=== PATIENT | female | born 1975 | race Hispanic/Latino ===

== ENCOUNTER 2023-08-18 16:23 | Emergency (ER) | payer OTHER ==
--- OUTSIDE RECORDS SUMMARY | 2023-08-18 16:32 | XMS REPORT | Continuity of Care Document ---
Author Name Unknown Address [address] [facility] [address] [place] [address] [facility] Address [address] [facility] [address] [place] [address] Care Team Providers Care Plaster Pattern Caster Name Role Phone BONY HENSON Primary Care Physician Unavailab BONY Pacheco Attending Clinician Unavailable JULIA DA SILVA Attending Clinician Unavailable Ebhimynor GRILL ASSOCIATEJulia Rico Attending Clinician [phone] Unknown, Attending Attending Clinician Unavailab le Doctor Unassigned, [place] Attending Clinician [facility], Ang - Db Attending Clinician Unavailable Bony Krueger Attending Clinician [phone] SOFIA DAY Attending Clinician Unavailab Sofia Orellana DO Attending Clinician [phone] NENITA FERRERA Attending Clinician Unavailable Pob, [facility] Main Attending Clinician UnavailJAZZY Santoro Attending Clinician Unavailable SHERRI LIPSCOMB Attending Clinician Unavailable JESSICA JAY Attending Clinician Unavailable Jessica Galloway Attending Clinician [phone] CALLIE FREEMAN Attending Clinician Unavailable HARRIS MATA Attending Clinician Unavailable Harris Mata MD Attending Clinician [phone] Callie Freeman MD Attending Clinician [phone] Christiane Vasquez MD Attending Clinician [phone] Kassidy Barrientos Attending Clinician [phone] KASSIDY MIRAMONTES Attending Clinician UnavailSherri Thompson PA-C Attending Clinician [phone] Negro Pitt MD Attending Clinician [phone] NEGRO PITT Attending Clinician Unavailable Ray Garay MD Attending Clinician + [phone] RAY GARAY Attending Clinician UnavailJaylen Perez DO Attending Clinician [phone] Nurse, [facility] Attending Clinician Un available Agapito ANDERSON, Michelle Chaudhary Attending Clinician [phone] Green Cathy PUCKETT Attending Clinician [phone] Provider, [facility] Attending Clinician Un available YOLANDA GUZMÁN RP Attending Clinician Unavailable Yolanda Guzmán MD, Rp Attending Clinician [phone] FARHEEN AVINA Attending Clinician Unavailable Helen MALLORY, Farheen Attending Clinician [phone] Gustavo Bean Attending Clinician [phone] [facility] Attending Clinician Unavailable BONY HENSON Admitting Clinician Unavailable SOFIA DAY Admitting Clinician Unavailab HARRIS Longoria Admitting Clinician Unavailable CALLIE FREEMAN Admitting Clinician Unavailable SHERRI LIPSCOMB Admitting Clinician Unavailable Payers Payer Name Policy Type Policy Number Effective Date Expirati on Date Source [employer]IG[employer] II [id number] 2021 00:00:00 [facility] [id number] 2019 00:00:00 [facility] [id number] 2017 00:00:00 Problems Condition Name Condition Details Condition Category Status Onset Date Resolution Date Last Treatment Date Treating Clinician Comments Source Colitis Colitis Disease Active 12-24 00:00: 00 [facility] Irritable bowel syndrome, unspecifie d type Irritable bowel syndrome, unspecifie d type Disease Active 12-24 00:00: 00 [facility] Chronic constipati on Chronic constipati on Disease Active 12-24 00:00: 00 [facility] MERCER (nonalcoho lic steatohepa titis) MERCER (nonalcoho lic steatohepa titis) Disease Active 06-19 00:00: 00 [facility] Migraine with aura and without status migrainosu s, not intractabl e Migraine with aura and without status migrainosu s, not intractabl e Disease Active 2018-05 00:00: 00 [facility] Discolorat ion of skin Discolorat ion of skin Disease Active 2018-05 00:00: 00 [facility] Prediabete s Prediabete s Disease Active 2018-05 00:00: 00 [facility] Acquired hypothyroi dism Acquired hypothyroi dism Disease Active 01-28 00:00: 00 [facility] Vaginal granulatio n tissue Vaginal granulatio n tissue Disease Active 2017-05 00:00: 00 [facility] S/P hysterecto my S/P hysterecto my Disease Active 2017-05 0 00:00: 00 [facility] Status post surgical removal of both fallopian tubes Status post surgical removal of both fallopian tubes Disease Active 2017-05 0 00:00: 00 [facility] Iron deficiency Iron deficiency Disease Active 2017-05 0-10 00:00: 00 [facility] Breast cyst, left Breast cyst, left Disease Active 3-23 00:00: 00 [facility] Mammogram abnormal Mammogram abnormal Disease Active 2-20 00:00: 00 [facility] Urinary incontinen ce, unspecifie d type Urinary incontinen ce, unspecifie d type Disease Active 2016-05 2-13 00:00: 00 [facility] Hyperchole sterolemia Hyperchole sterolemia Disease Active 2016-05 0-05 00:00: 00 [facility] Vitamin D deficiency Vitamin D deficiency Disease Active 2016-05 0-05 00:00: 00 [facility] Excessive or frequent menstruati on Excessive or frequent menstruati on Disease Active 2015-05 00:00: 00 [facility] Tobacco dependence Tobacco dependence Disease Active 2015-05 00:00: 00 [facility] Chronic blood loss anemia Chronic blood loss anemia Disease Active 2015-05 00:00: 00 [facility] 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 2015-05 00:00: 00 [facility] Uterine leiomyoma, unspecifie d location Uterine leiomyoma, unspecifie d location Disease Active 2015-05 00:00: 00 [facility] Abdominal pain Abdominal pain Disease Active 2015-05 00:00: 00 [facility] Microscopi c hematuria Microscopi c hematuria Disease Active [facility] Allergies, Adverse Reactions, Alerts Allergy Name Allergy Type Status Severity Reaction(s) Onset Date Inactive Date Treating Clinician Comments Source Strawber ry Propensi ty to adverse reaction s Active Hives 06-16 00:00: 00 [facility] STRAWBER RY DRUG INGREDI Active Hives 06-16 00:00: 00 [facility] Metronid azole Hcl Propensi ty to adverse reaction s Active Nausea and/or Vomiting 2017-05 00:00: 00 [facility] METRONID AZOLE HCL DRUG INGREDI Active N/V 2017-05 00:00: 00 [facility] Pantopra zole Propensi ty to adverse reaction s Active Rash 12-19 00:00: 00 [facility] PANTOPRA ZOLE DRUG INGREDI Active High Rash 12-19 00:00: 00 [facility] Clindamy macho Propensi ty to adverse reaction s Active Nausea and/or Vomiting 02-11 00:00: 00 Oral [facility] CLINDAMY MACHO DRUG INGREDI Active Med Diarrhea 02-11 00:00: 00 [facility] Ciproflo xacin Hcl Propensi ty to adverse reaction s Active Rash 12-18 00:00: 00 [facility] CIPROFLO XACIN HCL DRUG INGREDI Active High Rash 2015-0 7-29 00:00: 00 [facility] Social History Social Habit Start Date Stop Date Quantity Comments Source Gender [facility] History of tobacco use Cigarette Smoker [facility] Alcohol intake 2023-07-06 00:00:00 2023-07-06 00:00:00 0 /d [facility] History of Social function 2023-06-16 00:00:00 2023-06-16 00:00:00 [facility] Exposure to SARS-CoV-2 (event) 2022-10-15 00:00:00 2022-10-25 09:14:00 Not sure [facility] History SDOH Alcohol Std Drinks 2022-09-29 00:00:00 2022-09-29 00:00:00 1 [facility] History SDOH Alcohol Binge 2022-09-29 00:00:00 2022-09-29 00:00:00 1 [facility] History SDOH Social Connections Phone 2022-09-29 00:00:00 2022-09-29 00:00:00 5 [facility] History SDOH Social Connections Get Together 2022-09-29 00:00:00 2022-09-29 00:00:00 2 [facility] History SDOH Social Connections Shinto 2022-09-29 00:00:00 2022-09-29 00:00:00 3 [facility] History SDOH Social Connections Membership 2022-09-29 00:00:00 2022-09-29 00:00:00 2 [facility] History SDOH Social Connections Meetings 2022-09-29 00:00:00 2022-09-29 00:00:00 1 [facility] History SDOH Social Connections Living 2022-09-29 00:00:00 2022-09-29 00:00:00 3 [facility] History SDOH Physical Activity DPW 2022-09-29 00:00:00 2022-09-29 00:00:00 3 [facility] History SDOH Physical Activity MPS 2022-09-29 00:00:00 2022-09-29 00:00:00 3 [facility] History SDOH Stress 2022-09-29 00:00:00 2022-09-29 00:00:00 3 [facility] History SDOH Financial 2022-09-29 00:00:00 2022-09-29 00:00:00 5 [facility] History SDOH Food Worry 2022-09-29 00:00:00 2022-09-29 00:00:00 1 [facility] History SDOH Food Scarcity 2022-09-29 00:00:00 2022-09-29 00:00:00 1 [facility] History SDOH Transport Med 2022-09-29 00:00:00 2022-09-29 00:00:00 2 [facility] History SDOH Transport Non-Med 2022-09-29 00:00:00 2022-09-29 00:00:00 2 [facility] History SDOH Housing Unable to Pay 2022-09-29 00:00:00 2022-09-29 00:00:00 2 [facility] History SDOH Housing Places Lived 2022-09-29 00:00:00 2022-09-29 00:00:00 1 [facility] History SDOH Housing Homeless Last Year 2022-09-29 00:00:00 2022-09-29 00:00:00 2 [facility] History SDOH Alcohol Frequency 2022-09-29 00:00:00 2022-09-29 00:00:00 2 [facility] Tobacco use and exposure 2022-02-25 00:00:00 2022-02-25 00:00:00 Smokeless tobacco non-user [facility] Tobacco Comment 2022-02-25 00:00:00 2022-02-25 00:00:00 uses e-cigs (vapes) [facility] Alcohol Comment 2019-04-30 00:00:00 2019-04-30 00:00:00 rarely [facility] Sex Assigned At 1975 00:00:00 1975 00:00:00 [facility] Smoking Status Start Date Stop Date Source Ex-smoker 2022-02-25 00:00:00 2022-02-25 00:00:00 [facility] Occasional tobacco smoker 2020-04-30 00:00:00 [facility] Medications Ordered Medication Name Filled Medication Name Start Date Stop Date Current Medication? Ordering Clinician Indication Dosage Frequency Signature (SIG) Comments Components Source cefdinir 300 mg capsule 2-14 00:00: 00 07-17 05:59 :00 Yes [id number] 600mg Take 2 capsules by mouth in the morning for 10 days. [facility] doxepin 100 mg capsule 06-16 00:00: 00 Yes [id number] 100mg Take 1 capsule by mouth at bedtime. [facility] doxepin 100 mg capsule 0 06-16 00:00: 00 Yes [id number] 100mg Take 1 capsule by mouth at bedtime. [facility] doxepin 100 mg capsule 0 06-16 00:00: 00 Yes [id number] 100mg Take 1 capsule by mouth at bedtime. [facility] doxepin 100 mg capsule 0 06-16 00:00: 00 Yes [id number] 100mg Take 1 capsule by mouth at bedtime. [facility] doxepin 100 mg capsule 0 06-16 00:00: 00 Yes [id number] 100mg Take 1 capsule by mouth at bedtime. [facility] doxepin 100 mg capsule 06-16 00:00: 00 Yes [id number] 100mg Take 1 capsule by mouth at bedtime. [facility] levocetiriz ine 5 mg tablet 0 24 00:00: 00 Yes [id number] 5mg Take 1 tablet by mouth every evening. [facility] levocetiriz ine 5 mg tablet 2023-0 24 00:00: 00 Yes [id number] 5mg Take 1 tablet by mouth every evening. [facility] levocetiriz ine 5 mg tablet 0 24 00:00: 00 Yes [id number] 5mg Take 1 tablet by mouth every evening. [facility] levocetiriz ine 5 mg tablet 06-15 00:00: 00 Yes [id number] 5mg Take 1 tablet by mouth every evening. [facility] levocetiriz ine 5 mg tablet 06-15 00:00: 00 Yes [id number] 5mg Take 1 tablet by mouth every evening. [facility] levocetiriz ine 5 mg tablet 06-15 00:00: 00 Yes [id number] 5mg Take 1 tablet by mouth every evening. [facility] levocetiriz ine 5 mg tablet 06-15 00:00: 00 Yes [id number] 5mg Take 1 tablet by mouth every evening. [facility] doxepin 75 mg capsule 2022-05 00:00: 00 Yes [id number] 75mg Take 1 capsule by mouth at bedtime. [facility] doxepin 75 mg capsule 2022-05 00:00: 00 Yes [id number] 75mg Take 1 capsule by mouth at bedtime. [facility] doxepin 75 mg capsule 2022-05 00:00: 00 Yes [id number] 75mg Take 1 capsule by mouth at bedtime. [facility] doxepin 75 mg capsule 2022-05 00:00: 00 06-16 00:00 :00 No [id number] 75mg Take 1 capsule by mouth at bedtime. [facility] doxepin 75 mg capsule 2022-05 00:00: 00 06-16 00:00 :00 No [id number] 75mg Take 1 capsule by mouth at bedtime. [facility] linaCLOtide (LINZESS) 72 mcg Cap 02-14 00:00: 00 Yes [id number] 144ug Take 2 capsules by mouth every morning. See GI for refills [facility] linaCLOtide (LINZESS) 72 mcg Cap 2022-02-14 00:00: 00 Yes [id number] 144ug Take 2 capsules by mouth every morning. See GI for refills [facility] linaCLOtide (LINZESS) 72 mcg Cap 02-14 00:00: 00 Yes [id number] 144ug Take 2 capsules by mouth every morning. See GI for refills [facility] linaCLOtide (LINZESS) 72 mcg Cap 2023-0 02-14 00:00: 00 Yes [id number] 144ug Take 2 capsules by mouth every morning. See GI for refills [facility] linaCLOtide (LINZESS) 72 mcg Cap 2023-0 02-14 00:00: 00 Yes [id number] 144ug Take 2 capsules by mouth every morning. See GI for refills [facility] linaCLOtide (LINZESS) 72 mcg Cap 2023-0 02-14 00:00: 00 Yes [id number] 144ug Take 2 capsules by mouth every morning. See GI for refills [facility] linaCLOtide (LINZESS) 72 mcg Cap 2023-0 02-14 00:00: 00 Yes [id number] 144ug Take 2 capsules by mouth every morning. See GI for refills [facility] linaCLOtide (LINZESS) 72 mcg Cap 3-0 02-14 00:00: 00 Yes [id number] 144ug Take 2 capsules by mouth every morning. See GI for refills [facility] linaCLOtide (LINZESS) 72 mcg Cap 3-0 02-14 00:00: 00 Yes [id number] 144ug Take 2 capsules by mouth every morning. See GI for refills [facility] linaCLOtide (LINZESS) 72 mcg Cap 3-0 02-14 00:00: 00 Yes [id number] 144ug Take 2 capsules by mouth every morning. See GI for refills [facility] linaCLOtide (LINZESS) 72 mcg Cap 3-0 12-24 00:00: 00 Yes [id number] 144ug Take 2 capsules by mouth every morning. [facility] olopatadine 0.1 % ophthalmic solution 12-24 00:00: 00 Yes [id number] 1[drp] Place 1 Drop in both eyes 2 (two) times daily as needed for Allergies. [facility] montelukast 10 mg tablet 12-24 00:00: 00 Yes [id number] 10mg Take 1 tablet by mouth in the morning. [facility] levocetiriz ine 5 mg tablet 12-24 00:00: 00 Yes [id number] 5mg Take 1 tablet by mouth every evening. [facility] linaCLOtide (LINZESS) 72 mcg Cap 12-24 00:00: 00 Yes [id number] 144ug Take 2 capsules by mouth every morning. [facility] olopatadine 0.1 % ophthalmic solution 12-24 00:00: 00 Yes [id number] 1[drp] Place 1 Drop in both eyes 2 (two) times daily as needed for Allergies. [facility] montelukast 10 mg tablet 12-24 00:00: 00 Yes [id number] 10mg Take 1 tablet by mouth in the morning. [facility] levocetiriz ine 5 mg tablet 12-24 00:00: 00 Yes [id number] 5mg Take 1 tablet by mouth every evening. [facility] olopatadine 0.1 % ophthalmic solution 12-24 00:00: 00 Yes [id number] 1[drp] Place 1 Drop in both eyes 2 (two) times daily as needed for Allergies. [facility] montelukast 10 mg tablet 12-24 00:00: 00 Yes [id number] 10mg Take 1 tablet by mouth in the morning. [facility] levocetiriz ine 5 mg tablet 12-24 00:00: 00 Yes [id number] 5mg Take 1 tablet by mouth every evening. [facility] olopatadine 0.1 % ophthalmic solution 12-24 00:00: 00 Yes [id number] 1[drp] Place 1 Drop in both eyes 2 (two) times daily as needed for Allergies. [facility] montelukast 10 mg tablet 12-24 00:00: 00 Yes [id number] 10mg Take 1 tablet by mouth in the morning. [facility] levocetiriz ine 5 mg tablet 12-24 00:00: 00 Yes [id number] 5mg Take 1 tablet by mouth every evening. [facility] olopatadine 0.1 % ophthalmic solution 2022-0 8-04 00:00: 00 Yes [id number] 1[drp] Place 1 Drop in both eyes 2 (two) times daily as needed for Allergies. [facility] montelukast 10 mg tablet 2022-0 8-04 00:00: 00 Yes [id number] 10mg Take 1 tablet by mouth in the morning. [facility] levocetiriz ine 5 mg tablet 2022-0 8-04 00:00: 00 Yes [id number] 5mg Take 1 tablet by mouth every evening. [facility] olopatadine 0.1 % ophthalmic solution 2022-0 8-04 00:00: 00 Yes [id number] 1[drp] Place 1 Drop in both eyes 2 (two) times daily as needed for Allergies. [facility] montelukast 10 mg tablet 2022-0 8-04 00:00: 00 Yes [id number] 10mg Take 1 tablet by mouth in the morning. [facility] olopatadine 0.1 % ophthalmic solution 2022-0 8-04 00:00: 00 Yes [id number] 1[drp] Place 1 Drop in both eyes 2 (two) times daily as needed for Allergies. [facility] montelukast 10 mg tablet 2022-0 8-04 00:00: 00 Yes [id number] 10mg Take 1 tablet by mouth in the morning. [facility] olopatadine 0.1 % ophthalmic solution 2022-0 8-04 00:00: 00 Yes [id number] 1[drp] Place 1 Drop in both eyes 2 (two) times daily as needed for Allergies. [facility] montelukast 10 mg tablet 2022-0 8-04 00:00: 00 Yes [id number] 10mg Take 1 tablet by mouth in the morning. [facility] olopatadine 0.1 % ophthalmic solution 2022-0 8-04 00:00: 00 Yes [id number] 1[drp] Place 1 Drop in both eyes 2 (two) times daily as needed for Allergies. [facility] montelukast 10 mg tablet 8- 00:00: 00 Yes [id number] 10mg Take 1 tablet by mouth in the morning. [facility] olopatadine 0.1 % ophthalmic solution 8- 00:00: 00 Yes [id number] 1[drp] Place 1 Drop in both eyes 2 (two) times daily as needed for Allergies. [facility] montelukast 10 mg tablet 8- 00:00: 00 Yes [id number] 10mg Take 1 tablet by mouth in the morning. [facility] olopatadine 0.1 % ophthalmic solution 8 00:00: 00 Yes [id number] 1[drp] Place 1 Drop in both eyes 2 (two) times daily as needed for Allergies. [facility] montelukast 10 mg tablet 12-24 00:00: 00 Yes [id number] 10mg Take 1 tablet by mouth in the morning. [facility] olopatadine 0.1 % ophthalmic solution 8 00:00: 00 Yes [id number] 1[drp] Place 1 Drop in both eyes 2 (two) times daily as needed for Allergies. [facility] montelukast 10 mg tablet 12-24 00:00: 00 Yes [id number] 10mg Take 1 tablet by mouth in the morning. [facility] levocetiriz ine 5 mg tablet 12-24 00:00: 00 06-15 00:00 :00 No [id number] 5mg Take 1 tablet by mouth every evening. [facility] linaCLOtide (LINZESS) 72 mcg Cap 12-24 00:00: 00 02-14 00:00 :00 No [id number] 144ug Take 2 capsules by mouth every morning. [facility] iopamidol (ISOVUE 370-500 mL) injection 85 mL 10-29 16:45: 00 10-29 16:45 :00 No [id number] 85mL 85 mL, Intravenou s, ONCE, 1 dose, On Tue10/29/22 at 1145, Routine [facility] ketorolac (TORADOL) injection 30 mg 10-29 16:00: 00 10-29 15:35 :00 No 30mg 30 mg, Slow IV Push, ONCE, 1 dose, On Tue10/29/22 at 1100, Routine [facility] morpHINE (4 mg/mL) injection 4 mg 10-29 13:45: 00 10-29 13:42 :00 No 4mg 4 mg, Slow IV Push, ONCE, 1 dose, On Tue10/29/22 at 0845, STAT [facility] ondansetron (ZOFRAN (PF)) injection 4 mg 10-29 13:45: 00 10-29 13:42 :00 No 4mg 4 mg, Slow IV Push, ONCE, 1 dose, On Tue10/29/22 at 0845, FOUZIA [facility] famotidine (PEPCID (PF)) injection 20 mg 10-29 13:45: 00 10-29 13:43 :00 No 20mg 20 mg, Slow IV Push, ONCE, 1 dose, On Tue10/29/22 at 0845, FOUZIA [facility] DOXEPIN 75 mg capsule 10-29 00:00: 00 Yes [id number] TAKE 1 CAPSULE BY MOUTH EVERYDAY AT BEDTIME [facility] amoxicillin -clavulanat e 875-125 mg per tablet 10-29 00:00: 00 Yes [id number] 1{tbl} Take 1 tablet by mouth every 12 (twelve) hours. [facility] dicyclomine 20 mg tablet 10-29 00:00: 00 Yes [id number] 20mg Take 1 tablet by mouth every 6 (six) hours as needed for Abdominal pain. [facility] DOXEPIN 75 mg capsule 10-29 00:00: 00 Yes [id number] TAKE 1 CAPSULE BY MOUTH EVERYDAY AT BEDTIME [facility] DOXEPIN 75 mg capsule 10-29 00:00: 00 Yes [id number] TAKE 1 CAPSULE BY MOUTH EVERYDAY AT BEDTIME [facility] amoxicillin -clavulanat e 875-125 mg per tablet 0 10-29 00:00: 00 Yes [id number] 1{tbl} Take 1 tablet by mouth every 12 (twelve) hours. [facility] dicyclomine 20 mg tablet 2022-0 10-29 00:00: 00 Yes [id number] 20mg Take 1 tablet by mouth every 6 (six) hours as needed for Abdominal pain. [facility] DOXEPIN 75 mg capsule 0 10-29 00:00: 00 Yes [id number] TAKE 1 CAPSULE BY MOUTH EVERYDAY AT BEDTIME [facility] amoxicillin -clavulanat e 875-125 mg per tablet 0 10-29 00:00: 00 Yes [id number] 1{tbl} Take 1 tablet by mouth every 12 (twelve) hours. [facility] dicyclomine 20 mg tablet 0 10-29 00:00: 00 Yes [id number] 20mg Take 1 tablet by mouth every 6 (six) hours as needed for Abdominal pain. [facility] DOXEPIN 75 mg capsule 2022-0 10-29 00:00: 00 Yes [id number] TAKE 1 CAPSULE BY MOUTH EVERYDAY AT BEDTIME [facility] amoxicillin -clavulanat e 875-125 mg per tablet 0 10-29 00:00: 00 Yes [id number] 1{tbl} Take 1 tablet by mouth every 12 (twelve) hours. [facility] dicyclomine 20 mg tablet 2022-0 10-29 00:00: 00 Yes [id number] 20mg Take 1 tablet by mouth every 6 (six) hours as needed for Abdominal pain. [facility] DOXEPIN 75 mg capsule 0 10-29 00:00: 00 Yes [id number] TAKE 1 CAPSULE BY MOUTH EVERYDAY AT BEDTIME [facility] DOXEPIN 75 mg capsule 2022-0 10-29 00:00: 00 Yes [id number] TAKE 1 CAPSULE BY MOUTH EVERYDAY AT BEDTIME [facility] DOXEPIN 75 mg capsule 10-29 00:00: 00 Yes [id number] TAKE 1 CAPSULE BY MOUTH EVERYDAY AT BEDTIME [facility] DOXEPIN 75 mg capsule 10-29 00:00: 00 05-01 00:00 :00 No [id number] TAKE 1 CAPSULE BY MOUTH EVERYDAY AT BEDTIME [facility] amoxicillin -clavulanat e 875-125 mg per tablet 10-29 00:00: 12-24 00:00 :00 No [id number] 1{tbl} Take 1 tablet by mouth every 12 (twelve) hours. [facility] dicyclomine 20 mg tablet 10-29 00:00: 00 12-24 00:00 :00 No [id number] 20mg Take 1 tablet by mouth every 6 (six) hours as needed for Abdominal pain. [facility] amoxicillin -clavulanat e 875-125 mg per tablet 10-29 00:00: 00 12-24 00:00 :00 No [id number] 1{tbl} Take 1 tablet by mouth every 12 (twelve) hours. [facility] dicyclomine 20 mg tablet 10-29 00:00: 00 12-24 00:00 :00 No [id number] 20mg Take 1 tablet by mouth every 6 (six) hours as needed for Abdominal pain. [facility] linaCLOtide (LINZESS) 72 mcg Cap 10-26 00:00: 00 Yes [id number] 72ug Take 1 capsule by mouth every morning. [facility] phenylephri ne 0.25 % suppository 10-26 00:00: 00 Yes [id number] 1{suppo sitory} Insert 1 Suppositor y into rectum in the morning and 1 Suppositor y in the evening. [facility] linaCLOtide (LINZESS) 72 mcg Cap 10-26 00:00: 00 Yes [id number] 72ug Take 1 capsule by mouth every morning. [facility] phenylephri ne 0.25 % suppository 10-26 00:00: 00 Yes [id number] 1{suppo sitory} Insert 1 Suppositor y into rectum in the morning and 1 Suppositor y in the evening. [facility] linaCLOtide (LINZESS) 72 mcg Cap 2023-0 10-26 00:00: 00 Yes [id number] 72ug Take 1 capsule by mouth every morning. [facility] phenylephri ne 0.25 % suppository 2023-0 10-26 00:00: 00 Yes [id number] 1{suppo sitory} Insert 1 Suppositor y into rectum in the morning and 1 Suppositor y in the evening. [facility] linaCLOtide (LINZESS) 72 mcg Cap 2023-0 10-26 00:00: 00 Yes [id number] 72ug Take 1 capsule by mouth every morning. [facility] phenylephri ne 0.25 % suppository 3-0 10-26 00:00: 00 Yes [id number] 1{suppo sitory} Insert 1 Suppositor y into rectum in the morning and 1 Suppositor y in the evening. [facility] linaCLOtide (LINZESS) 72 mcg Cap 2023-0 10-26 00:00: 00 Yes [id number] 72ug Take 1 capsule by mouth every morning. [facility] phenylephri ne 0.25 % suppository 3-0 10-26 00:00: 00 Yes [id number] 1{suppo sitory} Insert 1 Suppositor y into rectum in the morning and 1 Suppositor y in the evening. [facility] linaCLOtide (LINZESS) 72 mcg Cap 2023-0 10-26 00:00: 00 Yes [id number] 72ug Take 1 capsule by mouth every morning. [facility] phenylephri ne 0.25 % suppository 2023-0 10-26 00:00: 00 Yes [id number] 1{suppo sitory} Insert 1 Suppositor y into rectum in the morning and 1 Suppositor y in the evening. [facility] linaCLOtide (LINZESS) 72 mcg Cap 2023-0 10-26 00:00: 00 Yes [id number] 72ug Take 1 capsule by mouth every morning. [facility] phenylephri ne 0.25 % suppository 3-0 10-26 00:00: 00 Yes [id number] 1{suppo sitory} Insert 1 Suppositor y into rectum in the morning and 1 Suppositor y in the evening. [facility] linaCLOtide (LINZESS) 72 mcg Cap 3-0 10-26 00:00: 00 Yes [id number] 72ug Take 1 capsule by mouth every morning. [facility] phenylephri ne 0.25 % suppository 2022-0 10-26 00:00: 00 Yes [id number] 1{suppo sitory} Insert 1 Suppositor y into rectum in the morning and 1 Suppositor y in the evening. [facility] linaCLOtide (LINZESS) 72 mcg Cap 3-0 10-26 00:00: 00 Yes [id number] 72ug Take 1 capsule by mouth every morning. [facility] phenylephri ne 0.25 % suppository 2022-0 10-26 00:00: 00 Yes [id number] 1{suppo sitory} Insert 1 Suppositor y into rectum in the morning and 1 Suppositor y in the evening. [facility] linaCLOtide (LINZESS) 72 mcg Cap 2022-0 10-26 00:00: 00 12-24 00:00 :00 No [id number] 72ug Take 1 capsule by mouth every morning. [facility] phenylephri ne 0.25 % suppository 2022-0 10-26 00:00: 00 12-24 00:00 :00 No [id number] 1{suppo sitory} Insert 1 Suppositor y into rectum in the morning and 1 Suppositor y in the evening. [facility] linaCLOtide (LINZESS) 72 mcg Cap 3-0 10-26 00:00: 00 12-24 00:00 :00 No [id number] 72ug Take 1 capsule by mouth every morning. [facility] phenylephri ne 0.25 % suppository 2022-0 10-26 00:00: 00 12-24 00:00 :00 No [id number] 1{suppo sitory} Insert 1 Suppositor y into rectum in the morning and 1 Suppositor y in the evening. [facility] doxepin 75 mg capsule -12 00:00: 00 Yes [id number] 75mg Take 1 capsule by mouth at bedtime. [facility] doxepin 75 mg capsule -12 00:00: 00 Yes [id number] 75mg Take 1 capsule by mouth at bedtime. [facility] doxepin 75 mg capsule -12 00:00: 00 Yes [id number] 75mg Take 1 capsule by mouth at bedtime. [facility] doxepin 75 mg capsule 10-01 00:00: 00 Yes [id number] 75mg Take 1 capsule by mouth at bedtime. [facility] doxepin 75 mg capsule 10-01 00:00: 00 Yes [id number] 75mg Take 1 capsule by mouth at bedtime. [facility] doxepin 75 mg capsule 12 00:00: 00 10-29 00:00 :00 No [id number] 75mg Take 1 capsule by mouth at bedtime. [facility] doxepin 75 mg capsule 12 00:00: 00 10-29 00:00 :00 No [id number] 75mg Take 1 capsule by mouth at bedtime. [facility] ergocalcife rol, vitamin d2, 1,250 mcg (50,000 unit) capsule 2- 00:00: 00 Yes [id number] Take 1 capsule by mouth weekly. [facility] doxepin 50 mg capsule 2- 00:00: 00 Yes [id number] 50mg Take 1 capsule by mouth at bedtime. [facility] ergocalcife rol, vitamin d2, 1,250 mcg (50,000 unit) capsule 2- 00:00: 00 Yes [id number] Take 1 capsule by mouth weekly. [facility] doxepin 50 mg capsule 0 2-03 00:00: 00 Yes [id number] 50mg Take 1 capsule by mouth at bedtime. [facility] ergocalcife rol, vitamin d2, 1,250 mcg (50,000 unit) capsule 0 2-03 00:00: 00 Yes [id number] Take 1 capsule by mouth weekly. [facility] doxepin 50 mg capsule 0 2-03 00:00: 00 Yes [id number] 50mg Take 1 capsule by mouth at bedtime. [facility] ergocalcife rol, vitamin d2, 1,250 mcg (50,000 unit) capsule 0 2- 00:00: 00 Yes [id number] Take 1 capsule by mouth weekly. [facility] doxepin 50 mg capsule 0 2- 00:00: 00 Yes [id number] 50mg Take 1 capsule by mouth at bedtime. [facility] ergocalcife rol, vitamin d2, 1,250 mcg (50,000 unit) capsule 0 2- 00:00: 00 Yes [id number] Take 1 capsule by mouth weekly. [facility] ergocalcife rol, vitamin d2, 1,250 mcg (50,000 unit) capsule 0 2- 00:00: 00 Yes [id number] Take 1 capsule by mouth weekly. [facility] ergocalcife rol, vitamin d2, 1,250 mcg (50,000 unit) capsule 0 2-03 00:00: 00 Yes [id number] Take 1 capsule by mouth weekly. [facility] ergocalcife rol, vitamin d2, 1,250 mcg (50,000 unit) capsule 0 2-03 00:00: 00 Yes [id number] Take 1 capsule by mouth weekly. [facility] ergocalcife rol, vitamin d2, 1,250 mcg (50,000 unit) capsule 0 2-03 00:00: 00 Yes [id number] Take 1 capsule by mouth weekly. [facility] ergocalcife rol, vitamin d2, 1,250 mcg (50,000 unit) capsule 0 2-03 00:00: 00 Yes [id number] Take 1 capsule by mouth weekly. [facility] ergocalcife rol, vitamin d2, 1,250 mcg (50,000 unit) capsule 0 2-03 00:00: 00 Yes [id number] Take 1 capsule by mouth weekly. [facility] ergocalcife rol, vitamin d2, 1,250 mcg (50,000 unit) capsule 0 2-03 00:00: 00 Yes [id number] Take 1 capsule by mouth weekly. [facility] ergocalcife rol, vitamin d2, 1,250 mcg (50,000 unit) capsule 2- 00:00: 00 Yes [id number] Take 1 capsule by mouth weekly. [facility] ergocalcife rol, vitamin d2, 1,250 mcg (50,000 unit) capsule 0 2- 00:00: 00 Yes [id number] Take 1 capsule by mouth weekly. [facility] ergocalcife rol, vitamin d2, 1,250 mcg (50,000 unit) capsule 0 2-03 00:00: 00 Yes [id number] Take 1 capsule by mouth weekly. [facility] ergocalcife rol, vitamin d2, 1,250 mcg (50,000 unit) capsule 0 2-03 00:00: 00 Yes [id number] Take 1 capsule by mouth weekly. [facility] ergocalcife rol, vitamin d2, 1,250 mcg (50,000 unit) capsule 0 2-03 00:00: 00 Yes [id number] Take 1 capsule by mouth weekly. [facility] ergocalcife rol, vitamin d2, 1,250 mcg (50,000 unit) capsule 0 2-03 00:00: 00 Yes [id number] Take 1 capsule by mouth weekly. [facility] ergocalcife rol, vitamin d2, 1,250 mcg (50,000 unit) capsule 0 2-03 00:00: 00 Yes [id number] Take 1 capsule by mouth weekly. [facility] ergocalcife rol, vitamin d2, 1,250 mcg (50,000 unit) capsule 2-03 00:00: 00 Yes [id number] Take 1 capsule by mouth weekly. [facility] ergocalcife rol, vitamin d2, 1,250 mcg (50,000 unit) capsule 0 2-03 00:00: 00 Yes [id number] Take 1 capsule by mouth weekly. [facility] ergocalcife rol, vitamin d2, 1,250 mcg (50,000 unit) capsule 2- 00:00: 00 Yes [id number] Take 1 capsule by mouth weekly. [facility] ergocalcife rol, vitamin d2, 1,250 mcg (50,000 unit) capsule 2- 00:00: 00 Yes [id number] Take 1 capsule by mouth weekly. [facility] ergocalcife rol, vitamin d2, 1,250 mcg (50,000 unit) capsule 2- 00:00: 00 Yes [id number] Take 1 capsule by mouth weekly. [facility] ergocalcife rol, vitamin d2, 1,250 mcg (50,000 unit) capsule 2-03 00:00: 00 Yes [id number] Take 1 capsule by mouth weekly. [facility] ergocalcife rol, vitamin d2, 1,250 mcg (50,000 unit) capsule 2-03 00:00: 00 Yes [id number] Take 1 capsule by mouth weekly. [facility] ergocalcife rol, vitamin d2, 1,250 mcg (50,000 unit) capsule 0 2-03 00:00: 00 Yes [id number] Take 1 capsule by mouth weekly. [facility] doxepin 50 mg capsule 0 2- 00:00: 00 10-01 00:00 :00 No [id number] 50mg Take 1 capsule by mouth at bedtime. [facility] doxepin 50 mg capsule 06-25 00:00: 00 10-01 00:00 :00 No [id number] 50mg Take 1 capsule by mouth at bedtime. [facility] levothyroxi ne (SYNTHROID) 75 mcg tablet 2021-05 00:00: 00 Yes [id number] 75ug Take 1 tablet by mouth every morning. [facility] levothyroxi ne (SYNTHROID) 75 mcg tablet 2021-05 00:00: 00 Yes [id number] 75ug Take 1 tablet by mouth every morning. [facility] levothyroxi ne (SYNTHROID) 75 mcg tablet 2021-05 00:00: 00 Yes [id number] 75ug Take 1 tablet by mouth every morning. [facility] levothyroxi ne (SYNTHROID) 75 mcg tablet 2021-05 00:00: 00 Yes [id number] 75ug Take 1 tablet by mouth every morning. [facility] levothyroxi ne (SYNTHROID) 75 mcg tablet 2021-05 00:00: 00 Yes [id number] 75ug Take 1 tablet by mouth every morning. [facility] levothyroxi ne (SYNTHROID) 75 mcg tablet 2021-05 00:00: 00 Yes [id number] 75ug Take 1 tablet by mouth every morning. [facility] levothyroxi ne (SYNTHROID) 75 mcg tablet 2021-05 00:00: 00 Yes [id number] 75ug Take 1 tablet by mouth every morning. [facility] levothyroxi ne (SYNTHROID) 75 mcg tablet 2021-05 00:00: 00 Yes [id number] 75ug Take 1 tablet by mouth every morning. [facility] levothyroxi ne (SYNTHROID) 75 mcg tablet 2021-05 00:00: 00 Yes [id number] 75ug Take 1 tablet by mouth every morning. [facility] levothyroxi ne (SYNTHROID) 75 mcg tablet 2021-05 00:00: 00 Yes [id number] 75ug Take 1 tablet by mouth every morning. [facility] levothyroxi ne (SYNTHROID) 75 mcg tablet 2021-05 00:00: 00 Yes [id number] 75ug Take 1 tablet by mouth every morning. [facility] levothyroxi ne (SYNTHROID) 75 mcg tablet 2021-05 00:00: 00 Yes [id number] 75ug Take 1 tablet by mouth every morning. [facility] levothyroxi ne (SYNTHROID) 75 mcg tablet 2021-05 00:00: 00 Yes [id number] 75ug Take 1 tablet by mouth every morning. [facility] levothyroxi ne (SYNTHROID) 75 mcg tablet 2021-05 00:00: 00 Yes [id number] 75ug Take 1 tablet by mouth every morning. [facility] levothyroxi ne (SYNTHROID) 75 mcg tablet 2021-05 00:00: 00 Yes [id number] 75ug Take 1 tablet by mouth every morning. [facility] levothyroxi ne (SYNTHROID) 75 mcg tablet 2021-05 00:00: 00 Yes [id number] 75ug Take 1 tablet by mouth every morning. [facility] levothyroxi ne (SYNTHROID) 75 mcg tablet 2021-05 00:00: 00 Yes [id number] 75ug Take 1 tablet by mouth every morning. [facility] levothyroxi ne (SYNTHROID) 75 mcg tablet 2021-05 00:00: 00 Yes [id number] 75ug Take 1 tablet by mouth every morning. [facility] levothyroxi ne (SYNTHROID) 75 mcg tablet 2021-05 00:00: 00 Yes [id number] 75ug Take 1 tablet by mouth every morning. [facility] levothyroxi ne (SYNTHROID) 75 mcg tablet 2021-05 00:00: 00 12-24 00:00 :00 No [id number] 75ug Take 1 tablet by mouth every morning. [facility] levothyroxi ne (SYNTHROID) 75 mcg tablet 2021-05 00:00: 00 12-24 00:00 :00 No [id number] 75ug Take 1 tablet by mouth every morning. [facility] doxepin 50 mg capsule 2021-05 00:00: 00 Yes [id number] 50mg Take 1 capsule by mouth at bedtime. [facility] doxepin 50 mg capsule 2021-05 00:00: 00 Yes [id number] 50mg Take 1 capsule by mouth at bedtime. [facility] doxepin 50 mg capsule 2021-05 00:00: 00 Yes [id number] 50mg Take 1 capsule by mouth at bedtime. [facility] doxepin 50 mg capsule 2021-05 00:00: 00 Yes [id number] 50mg Take 1 capsule by mouth at bedtime. [facility] doxepin 50 mg capsule 2021-05 00:00: 00 Yes [id number] 50mg Take 1 capsule by mouth at bedtime. [facility] doxepin 50 mg capsule 2021-05 00:00: 00 Yes [id number] 50mg Take 1 capsule by mouth at bedtime. [facility] doxepin 50 mg capsule 2021-05 00:00: 00 Yes [id number] 50mg Take 1 capsule by mouth at bedtime. [facility] doxepin 50 mg capsule 2021-05 00:00: 00 06-25 00:00 :00 No [id number] 50mg Take 1 capsule by mouth at bedtime. [facility] doxepin 50 mg capsule 2021-05 00:00: 00 06-25 00:00 :00 No [id number] 50mg Take 1 capsule by mouth at bedtime. [facility] CHOLECALCIF AVA, VITAMIN D3, (VITAMIN D3 ORAL) 2021-05 08:09: 39 02-28 00:00 :00 No Take by mouth. [facility] ergocalcife rol, vitamin d2, 1,250 mcg (50,000 unit) capsule 2021-05 0 00:00: 00 Yes [id number] Take 1 capsule by mouth weekly. [facility] levothyroxi ne (SYNTHROID) 50 mcg tablet 2021-05 00:00: 00 Yes [id number] 50ug Take 1 tablet by mouth every morning. [facility] ergocalcife rol, vitamin d2, 1,250 mcg (50,000 unit) capsule 2021-05 00:00: 00 Yes [id number] Take 1 capsule by mouth weekly. [facility] levothyroxi ne (SYNTHROID) 50 mcg tablet 2021-05 00:00: 00 Yes [id number] 50ug Take 1 tablet by mouth every morning. [facility] ergocalcife rol, vitamin d2, 1,250 mcg (50,000 unit) capsule 2021-05 00:00: 00 Yes [id number] Take 1 capsule by mouth weekly. [facility] levothyroxi ne (SYNTHROID) 50 mcg tablet 2021-05 00:00: 00 Yes [id number] 50ug Take 1 tablet by mouth every morning. [facility] ergocalcife rol, vitamin d2, 1,250 mcg (50,000 unit) capsule 2021-05 00:00: 00 Yes [id number] Take 1 capsule by mouth weekly. [facility] levothyroxi ne (SYNTHROID) 50 mcg tablet 2021-05 00:00: 00 Yes [id number] 50ug Take 1 tablet by mouth every morning. [facility] ergocalcife rol, vitamin d2, 1,250 mcg (50,000 unit) capsule 2021-05 00:00: 00 Yes [id number] Take 1 capsule by mouth weekly. [facility] levothyroxi ne (SYNTHROID) 50 mcg tablet 2021-05 00:00: 00 Yes [id number] 50ug Take 1 tablet by mouth every morning. [facility] ergocalcife rol, vitamin d2, 1,250 mcg (50,000 unit) capsule 2021-05 0 00:00: 00 Yes [id number] Take 1 capsule by mouth weekly. [facility] levothyroxi ne (SYNTHROID) 50 mcg tablet 2021-05 0 00:00: 00 Yes [id number] 50ug Take 1 tablet by mouth every morning. [facility] ergocalcife rol, vitamin d2, 1,250 mcg (50,000 unit) capsule 2021-05 0 00:00: 00 Yes [id number] Take 1 capsule by mouth weekly. [facility] levothyroxi ne (SYNTHROID) 50 mcg tablet 2021-05 0 00:00: 00 Yes [id number] 50ug Take 1 tablet by mouth every morning. [facility] ergocalcife rol, vitamin d2, 1,250 mcg (50,000 unit) capsule 2021-05 00:00: 00 Yes [id number] Take 1 capsule by mouth weekly. [facility] ergocalcife rol, vitamin d2, 1,250 mcg (50,000 unit) capsule 2021-05 00:00: 00 Yes [id number] Take 1 capsule by mouth weekly. [facility] ergocalcife rol, vitamin d2, 1,250 mcg (50,000 unit) capsule 2021-05 0 00:00: 00 Yes [id number] Take 1 capsule by mouth weekly. [facility] ergocalcife rol, vitamin d2, 1,250 mcg (50,000 unit) capsule 2021-05 00:00: 00 Yes [id number] Take 1 capsule by mouth weekly. [facility] ergocalcife rol, vitamin d2, 1,250 mcg (50,000 unit) capsule 2021-05 0 00:00: 00 06-25 00:00 :00 No [id number] Take 1 capsule by mouth weekly. [facility] ergocalcife rol, vitamin d2, 1,250 mcg (50,000 unit) capsule 2021-05 00:00: 00 06-25 00:00 :00 No [id number] Take 1 capsule by mouth weekly. [facility] levothyroxi ne (SYNTHROID) 50 mcg tablet 2021-05 0-09 00:00: 00 03-31 00:00 :00 No [id number] 50ug Take 1 tablet by mouth every morning. [facility] ZINC ORAL 2021-05 0-06 14:37: 16 Yes Take by mouth. [facility] ZINC ORAL 2021-05 0-06 14:37: 16 Yes Take by mouth. [facility]- 0-06 14:37: 16 Yes Take by mouth. [facility] ZINC ORAL 2021-05 0-06 14:37: 16 Yes Take by mouth. [facility] ZINC ORAL 2021-05 0-06 14:37: 16 Yes Take by mouth. [facility] ZINC ORAL 2021-05 0-06 14:37: 16 Yes Take by mouth. [facility] ZINC ORAL 2021-05 0-06 14:37: 16 Yes Take by mouth. [facility] ZINC ORAL 2021- 0-06 14:37: 16 Yes Take by mouth. [facility] ZINC ORAL 2021-05 0-06 14:37: 16 Yes Take by mouth. [facility] ZINC ORAL 2021-05 0-06 14:37: 16 Yes Take by mouth. [facility] ZINC ORAL 2021-05 0-06 14:37: 16 Yes Take by mouth. [facility] ZINC ORAL 2021-05 0-06 14:37: 16 Yes Take by mouth. [facility] ZINC ORAL 2021- 0-06 14:37: 16 Yes Take by mouth. [facility] ZINC ORAL 2021- 0-06 14:37: 16 Yes Take by mouth. [facility] ZINC ORAL 2021- 0-06 14:37: 16 Yes Take by mouth. [facility] ZINC ORAL 2021- 0-06 14:37: 16 Yes Take by mouth. [facility] ZINC ORAL 2021-1 0-06 14:37: 16 Yes Take by mouth. [facility] ZINC ORAL 2022-1 0-06 14:37: 16 Yes Take by mouth. [facility] ZINC ORAL 2022-1 0-06 14:37: 16 Yes Take by mouth. [facility] ZINC ORAL 2022-1 0-06 14:37: 16 Yes Take by mouth. [facility] ZINC ORAL 2022-1 0-06 14:37: 16 Yes Take by mouth. [facility] ZINC ORAL 2022-1 0-06 14:37: 16 Yes Take by mouth. [facility] ZINC ORAL 2022-1 0-06 14:37: 16 Yes Take by mouth. [facility] ZINC ORAL 2022-1 0-06 14:37: 16 Yes Take by mouth. [facility] ZINC ORAL 2022-1 0-06 14:37: 16 Yes Take by mouth. [facility] ZINC ORAL 2022-1 0-06 14:37: 16 Yes Take by mouth. [facility] ZINC ORAL 2022-1 0-06 14:37: 16 Yes Take by mouth. [facility] ZINC ORAL 2022-1 0-06 14:37: 16 Yes Take by mouth. [facility] ZINC ORAL 2022-1 0-06 14:37: 16 Yes Take by mouth. [facility] ZINC ORAL 2022-1 0-06 14:37: 16 Yes Take by mouth. [facility] ZINC ORAL 2022-1 0-06 14:37: 16 Yes Take by mouth. [facility] ZINC ORAL 2022-1 0-06 14:37: 16 Yes Take by mouth. [facility] ZINC ORAL 2022-1 0-06 14:37: 16 Yes Take by mouth. [facility] ZINC ORAL 2022-1 0-06 14:37: 16 Yes Take by mouth. [facility] ZINC ORAL 2022-1 0-06 14:37: 16 Yes Take by mouth. [facility] ZINC ORAL 2022-1 0-06 14:37: 16 Yes Take by mouth. [facility] ZINC ORAL 2021- 0-06 14:37: 16 Yes Take by mouth. [facility] ZINC ORAL 2021- 0-06 14:37: 16 Yes Take by mouth. [facility] ZINC ORAL 2021- 0-06 14:37: 16 Yes Take by mouth. [facility] ZINC ORAL 2021-05 0-06 14:37: 16 Yes Take by mouth. [facility] ZINC ORAL 2021- 0-06 14:37: 16 Yes Take by mouth. [facility] ZINC ORAL 2021- 0-06 14:37: 16 Yes Take by mouth. [facility] ZINC ORAL 2021-05 0-06 14:37: 16 Yes Take by mouth. [facility] ZINC ORAL 2021-05 0-06 14:37: 16 Yes Take by mouth. [facility] doxepin 50 mg capsule 2021-05 0-06 00:00: 00 Yes [id number] 50mg Take 1 capsule by mouth at bedtime. [facility] fluticasone propionate 50 mcg/actuati on nasal spray 2021-05 0-06 00:00: 00 Yes [id number] 1{spray } Use 1 [place] in each nostril in the morning. [facility] doxepin 50 mg capsule 2021-05 0-06 00:00: 00 Yes [id number] 50mg Take 1 capsule by mouth at bedtime. [facility] fluticasone propionate 50 mcg/actuati on nasal spray 2021-05 0-06 00:00: 00 Yes [id number] 1{spray } Use 1 [place] in each nostril in the morning. [facility] [facility] 2021-05 0-06 00:00: 00 Yes [id number] 50mg Take 1 capsule by mouth at bedtime. [facility] fluticasone propionate 50 mcg/actuati on nasal spray 2021-05 0-06 00:00: 00 Yes [id number] 1{spray } Use 1 [place] in each nostril in the morning. [facility] doxepin 50 mg capsule 2021-05 0-06 00:00: 00 Yes [id number] 50mg Take 1 capsule by mouth at bedtime. [facility] fluticasone propionate 50 mcg/actuati on nasal spray 2021-05 0-06 00:00: 00 Yes [id number] 1{spray } Use 1 [place] in each nostril in the morning. [facility] doxepin 50 mg capsule 2021-05 0-06 00:00: 00 Yes [id number] 50mg Take 1 capsule by mouth at bedtime. [facility] fluticasone propionate 50 mcg/actuati on nasal spray 2021-05 0-06 00:00: 00 Yes [id number] 1{spray } Use 1 [place] in each nostril in the morning. [facility] doxepin 50 mg capsule 2021-05 0-06 00:00: 00 Yes [id number] 50mg Take 1 capsule by mouth at bedtime. [facility] fluticasone propionate 50 mcg/actuati on nasal spray 2021-05 0-06 00:00: 00 Yes [id number] 1{spray } Use 1 [place] in each nostril in the morning. [facility] fluticasone propionate 50 mcg/actuati on nasal spray 2021-05 0-06 00:00: 00 Yes [id number] 1{spray } Use 1 [place] in each nostril in the morning. [facility] fluticasone propionate 50 mcg/actuati on nasal spray 2021-05 0-06 00:00: 00 Yes [id number] 1{spray } Use 1 [place] in each nostril in the morning. [facility] fluticasone propionate 50 mcg/actuati on nasal spray 2021-05 0-06 00:00: 00 Yes [id number] 1{spray } Use 1 [place] in each nostril in the morning. [facility] fluticasone propionate 50 mcg/actuati on nasal spray 2021-05 0-06 00:00: 00 Yes [id number] 1{spray } Use 1 [place] in each nostril in the morning. [facility] fluticasone propionate 50 mcg/actuati on nasal spray 2021-05 0-06 00:00: 00 Yes [id number] 1{spray } Use 1 [place] in each nostril in the morning. [facility] fluticasone propionate 50 mcg/actuati on nasal spray 2021-05 0-06 00:00: 00 Yes [id number] 1{spray } Use 1 [place] in each nostril in the morning. [facility] fluticasone propionate 50 mcg/actuati on nasal spray 2021-05 0-06 00:00: 00 Yes [id number] 1{spray } Use 1 [place] in each nostril in the morning. [facility] fluticasone propionate 50 mcg/actuati on nasal spray 2021-05 0-06 00:00: 00 Yes [id number] 1{spray } Use 1 [place] in each nostril in the morning. [facility] fluticasone propionate 50 mcg/actuati on nasal spray 2021-05 0-06 00:00: 00 Yes [id number] 1{spray } Use 1 [place] in each nostril in the morning. [facility] fluticasone propionate 50 mcg/actuati on nasal spray 2021-05 0-06 00:00: 00 Yes [id number] 1{spray } Use 1 [place] in each nostril in the morning. [facility] fluticasone propionate 50 mcg/actuati on nasal spray 2021-05 0-06 00:00: 00 Yes [id number] 1{spray } Use 1 [place] in each nostril in the morning. [facility] fluticasone propionate 50 mcg/actuati on nasal spray 2021-05 0-06 00:00: 00 Yes [id number] 1{spray } Use 1 [place] in each nostril in the morning. [facility] fluticasone propionate 50 mcg/actuati on nasal spray 2021-05 0-06 00:00: 00 Yes [id number] 1{spray } Use 1 [place] in each nostril in the morning. [facility] fluticasone propionate 50 mcg/actuati on nasal spray 2021-05 0-06 00:00: 00 Yes [id number] 1{spray } Use 1 [place] in each nostril in the morning. [facility] fluticasone propionate 50 mcg/actuati on nasal spray 2021-05 0-06 00:00: 00 Yes [id number] 1{spray } Use 1 [place] in each nostril in the morning. [facility] fluticasone propionate 50 mcg/actuati on nasal spray 2021-05 0-06 00:00: 00 Yes [id number] 1{spray } Use 1 [place] in each nostril in the morning. [facility] fluticasone propionate 50 mcg/actuati on nasal spray 2021-05 0-06 00:00: 00 Yes [id number] 1{spray } Use 1 [place] in each nostril in the morning. [facility] fluticasone propionate 50 mcg/actuati on nasal spray 2021-05 0-06 00:00: 00 Yes [id number] 1{spray } Use 1 [place] in each nostril in the morning. [facility] fluticasone propionate 50 mcg/actuati on nasal spray 2021-05 0-06 00:00: 00 Yes [id number] 1{spray } Use 1 [place] in each nostril in the morning. [facility] fluticasone propionate 50 mcg/actuati on nasal spray 2021-05 0-06 00:00: 00 Yes [id number] 1{spray } Use 1 [place] in each nostril in the morning. [facility] fluticasone propionate 50 mcg/actuati on nasal spray 2021-05 0-06 00:00: 00 Yes [id number] 1{spray } Use 1 [place] in each nostril in the morning. [facility] fluticasone propionate 50 mcg/actuati on nasal spray 2021-05 0-06 00:00: 00 Yes [id number] 1{spray } Use 1 [place] in each nostril in the morning. [facility] fluticasone propionate 50 mcg/actuati on nasal spray 2021-05 0-06 00:00: 00 Yes [id number] 1{spray } Use 1 [place] in each nostril in the morning. [facility] fluticasone propionate 50 mcg/actuati on nasal spray 2021-05 0-06 00:00: 00 Yes [id number] 1{spray } Use 1 [place] in each nostril in the morning. [facility] fluticasone propionate 50 mcg/actuati on nasal spray 2021-05 0-06 00:00: 00 Yes [id number] 1{spray } Use 1 [place] in each nostril in the morning. [facility] fluticasone propionate 50 mcg/actuati on nasal spray 2021-05 0-06 00:00: 00 Yes [id number] 1{spray } Use 1 [place] in each nostril in the morning. [facility] fluticasone propionate 50 mcg/actuati on nasal spray 2021-05 0-06 00:00: 00 Yes [id number] 1{spray } Use 1 [place] in each nostril in the morning. [facility] fluticasone propionate 50 mcg/actuati on nasal spray 2021-05 0-06 00:00: 00 Yes [id number] 1{spray } Use 1 [place] in each nostril in the morning. [facility] fluticasone propionate 50 mcg/actuati on nasal spray 2021-05 0-06 00:00: 00 Yes [id number] 1{spray } Use 1 [place] in each nostril in the morning. [facility] fluticasone propionate 50 mcg/actuati on nasal spray 2021-05 0-06 00:00: 00 Yes [id number] 1{spray } Use 1 [place] in each nostril in the morning. [facility] fluticasone propionate 50 mcg/actuati on nasal spray 2021-05 0-06 00:00: 00 Yes [id number] 1{spray } Use 1 [place] in each nostril in the morning. [facility] fluticasone propionate 50 mcg/actuati on nasal spray 2021-05 0-06 00:00: 00 Yes [id number] 1{spray } Use 1 [place] in each nostril in the morning. [facility] fluticasone propionate 50 mcg/actuati on nasal spray 2021-05 0-06 00:00: 00 Yes [id number] 1{spray } Use 1 [place] in each nostril in the morning. [facility] fluticasone propionate 50 mcg/actuati on nasal spray 2021-05 0-06 00:00: 00 Yes [id number] 1{spray } Use 1 [place] in each nostril in the morning. [facility] fluticasone propionate 50 mcg/actuati on nasal spray 2021-05 0-06 00:00: 00 Yes [id number] 1{spray } Use 1 [place] in each nostril in the morning. [facility] fluticasone propionate 50 mcg/actuati on nasal spray 2021-05 0-06 00:00: 00 Yes [id number] 1{spray } Use 1 [place] in each nostril in the morning. [facility] doxepin 50 mg capsule 2021-05 0-06 00:00: 00 03-29 00:00 :00 No [id number] 50mg Take 1 capsule by mouth at bedtime. [facility] doxepin 50 mg capsule 2021-05 0-06 00:00: 00 03-29 00:00 :00 No [id number] 50mg Take 1 capsule by mouth at bedtime. [facility] doxepin 50 mg capsule 2021-05 0-06 00:00: 00 03-29 00:00 :00 No [id number] 50mg Take 1 capsule by mouth at bedtime. [facility] iopamidol (ISOVUE 370-500 mL) injection 64 mL 02-06 16:00: 00 02-06 14:55 :00 No [id number] 64mL 64 mL, Intravenou s, ONCE, 1 dose, On 02/06/22 at 1100, Routine [facility] cefTRIAXone (ROCEPHIN) 1,000 mg in NaCl 0.9% (NS) 50 mL MINI-BAG 02-06 15:45: 00 02-06 15:55 :00 No 1000mg 1,000 mg, IV Piggyback, ONCE, 1 dose, On 02/06/22 at 1045, Administer over 30 Minutes, 50 mL
Reas on for Anti-Infec tive: Documented Infection< br>Documen gerri Infection Site: Urine
D uration of Therapy: 7 days [facility] NaCl 0.9% (NS) bolus infusion 1,000 mL 02-06 15:30: 00 02-06 16:24 :00 No 1000mL at 999 mL/hr, 1,000 mL, IV Infusion, ONCE, 1 dose, On 02/06/22 at 1030, [facility] ondansetron (ZOFRAN (PF)) injection 4 mg 02-06 15:15: 00 02-06 15:04 :00 No 4mg 4 mg, Slow IV Push, ONCE, 1 dose, On 02/06/22 at 1015, [facility] ketorolac (TORADOL) injection 15 mg 02-06 14:45: 00 02-06 15:03 :00 No 15mg 15 mg, Slow IV Push, ONCE, 1 dose, On 02/06/22 at 0945, [facility] ondansetron (ZOFRAN-ODT ) disintegrat ing tablet 4 mg 02-06 14:45: 00 02-06 13:50 :00 No 4mg 4 mg, Oral, ONCE, 1 dose, On 02/06/22 at 0945, [facility] proMETHazin e 25 mg tablet 02-06 00:00: 00 Yes [id number] 25mg Take 1 tablet by mouth every 6 (six) hours as needed for Nausea and Vomiting (N/V). [facility] proMETHazin e 25 mg tablet 02-06 00:00: 00 Yes [id number] 25mg Take 1 tablet by mouth every 6 (six) hours as needed for Nausea and Vomiting (N/V). [facility] proMETHazin e 25 mg tablet 02-06 00:00: 00 Yes [id number] 25mg Take 1 tablet by mouth every 6 (six) hours as needed for Nausea and Vomiting (N/V). [facility] proMETHazin e 25 mg tablet 2-0 9-17 00:00: 00 Yes [id number] 25mg Take 1 tablet by mouth every 6 (six) hours as needed for Nausea and Vomiting (N/V). [facility] proMETHazin e 25 mg tablet 2-0 9-17 00:00: 00 Yes [id number] 25mg Take 1 tablet by mouth every 6 (six) hours as needed for Nausea and Vomiting (N/V). [facility] proMETHazin e 25 mg tablet 2-0 -17 00:00: 00 Yes [id number] 25mg Take 1 tablet by mouth every 6 (six) hours as needed for Nausea and Vomiting (N/V). [facility] proMETHazin e 25 mg tablet 2021-0 -17 00:00: 00 Yes [id number] 25mg Take 1 tablet by mouth every 6 (six) hours as needed for Nausea and Vomiting (N/V). [facility] proMETHazin e 25 mg tablet 2-0 -17 00:00: 00 Yes [id number] 25mg Take 1 tablet by mouth every 6 (six) hours as needed for Nausea and Vomiting (N/V). [facility] proMETHazin e 25 mg tablet 2021-0 -17 00:00: 00 Yes [id number] 25mg Take 1 tablet by mouth every 6 (six) hours as needed for Nausea and Vomiting (N/V). [facility] proMETHazin e 25 mg tablet 2-0 9-17 00:00: 00 Yes [id number] 25mg Take 1 tablet by mouth every 6 (six) hours as needed for Nausea and Vomiting (N/V). [facility] proMETHazin e 25 mg tablet 2-0 9-17 00:00: 00 Yes [id number] 25mg Take 1 tablet by mouth every 6 (six) hours as needed for Nausea and Vomiting (N/V). [facility] proMETHazin e 25 mg tablet 2-0 9-17 00:00: 00 Yes [id number] 25mg Take 1 tablet by mouth every 6 (six) hours as needed for Nausea and Vomiting (N/V). [facility] proMETHazin e 25 mg tablet 2021-0 -17 00:00: 00 Yes [id number] 25mg Take 1 tablet by mouth every 6 (six) hours as needed for Nausea and Vomiting (N/V). [facility] proMETHazin e 25 mg tablet 0 02-06 00:00: 00 Yes [id number] 25mg Take 1 tablet by mouth every 6 (six) hours as needed for Nausea and Vomiting (N/V). [facility] cefpodoxime 200 mg tablet 0 02-06 00:00: 00 Yes [id number] 200mg Take 1 tablet by mouth in the morning and 1 tablet in the evening. [facility] proMETHazin e 25 mg tablet 0 02-06 00:00: 00 Yes [id number] 25mg Take 1 tablet by mouth every 6 (six) hours as needed for Nausea and Vomiting (N/V). [facility] proMETHazin e 25 mg tablet 02-06 00:00: 00 06-25 00:00 :00 No [id number] 25mg Take 1 tablet by mouth every 6 (six) hours as needed for Nausea and Vomiting (N/V). [facility] proMETHazin e 25 mg tablet 02-06 00:00: 00 06-25 00:00 :00 No [id number] 25mg Take 1 tablet by mouth every 6 (six) hours as needed for Nausea and Vomiting (N/V). [facility] cefpodoxime 200 mg tablet 0 02-06 00:00: 00 02-25 00:00 :00 No [id number] 200mg Take 1 tablet by mouth in the morning and 1 tablet in the evening. [facility] cefpodoxime 200 mg tablet 2021-0 17 00:00: 00 02-25 00:00 :00 No [id number] 200mg Take 1 tablet by mouth in the morning and 1 tablet in the evening. [facility] cefpodoxime 200 mg tablet 2021-0 17 00:00: 00 02-25 00:00 :00 No [id number] 200mg Take 1 tablet by mouth in the morning and 1 tablet in the evening. [facility] cefpodoxime 200 mg tablet 02-06 00:00: 00 02-06 00:00 :00 No [id number] 200mg Take 1 tablet by mouth in the morning and 1 tablet in the evening. Do all this for 7 days. [facility] proMETHazin e 25 mg tablet 02-06 00:00: 02-06 00:00 :00 No [id number] 25mg Take 1 tablet by mouth every 6 (six) hours as needed for Nausea and Vomiting (N/V). [facility] azelastine 137 mcg (0.1 %) nasal spray 08-12 00:00: 00 Yes [id number] 1{spray } Use 1 [place] in each nostril 2 (two) times daily. Use in each nostril as directed [facility] azelastine 137 mcg (0.1 %) nasal spray 08-12 00:00: 00 Yes [id number] 1{spray } Use 1 [place] in each nostril 2 (two) times daily. Use in each nostril as directed [facility] azelastine 137 mcg (0.1 %) nasal spray 08-12 00:00: 00 Yes [id number] 1{spray } Use 1 [place] in each nostril 2 (two) times daily. Use in each nostril as directed [facility] azelastine 137 mcg (0.1 %) nasal spray 08-12 00:00: 00 Yes [id number] 1{spray } Use 1 [place] in each nostril 2 (two) times daily. Use in each nostril as directed [facility] azelastine 137 mcg (0.1 %) nasal spray 08-12 00:00: 00 Yes [id number] 1{spray } Use 1 [place] in each nostril 2 (two) times daily. Use in each nostril as directed [facility] azelastine 137 mcg (0.1 %) nasal spray 08-12 00:00: 00 Yes [id number] 1{spray } Use 1 [place] in each nostril 2 (two) times daily. Use in each nostril as directed [facility] azelastine 137 mcg (0.1 %) nasal spray 08-12 00:00: 00 Yes [id number] 1{spray } Use 1 [place] in each nostril 2 (two) times daily. Use in each nostril as directed [facility] azelastine 137 mcg (0.1 %) nasal spray 08-12 00:00: 00 Yes [id number] 1{spray } Use 1 [place] in each nostril 2 (two) times daily. Use in each nostril as directed [facility] azelastine 137 mcg (0.1 %) nasal spray 08-12 00:00: 00 Yes [id number] 1{spray } Use 1 [place] in each nostril 2 (two) times daily. Use in each nostril as directed [facility] azelastine 137 mcg (0.1 %) nasal spray 08-12 00:00: 00 Yes [id number] 1{spray } Use 1 [place] in each nostril 2 (two) times daily. Use in each nostril as directed [facility] azelastine 137 mcg (0.1 %) nasal spray 08-12 00:00: 00 Yes [id number] 1{spray } Use 1 [place] in each nostril 2 (two) times daily. Use in each nostril as directed [facility] azelastine 137 mcg (0.1 %) nasal spray 08-12 00:00: 00 Yes [id number] 1{spray } Use 1 [place] in each nostril 2 (two) times daily. Use in each nostril as directed [facility] azelastine 137 mcg (0.1 %) nasal spray 08-12 00:00: 00 Yes [id number] 1{spray } Use 1 [place] in each nostril 2 (two) times daily. Use in each nostril as directed [facility] azelastine 137 mcg (0.1 %) nasal spray 08-12 00:00: 00 Yes [id number] 1{spray } Use 1 [place] in each nostril 2 (two) times daily. Use in each nostril as directed [facility] bromphenira mine-pseudo ephedrine-D M (BROMFED DM) 2-30-10 mg/5 mL syrup 08-12 00:00: 00 Yes [id number] 5mL Take 5 mL by mouth 4 (four) times daily as needed for Congestion /Allergies . [facility] azelastine 137 mcg (0.1 %) nasal spray 08-12 00:00: 00 Yes [id number] 1{spray } Use 1 [place] in each nostril 2 (two) times daily. Use in each nostril as directed [facility] fluticasone propionate 50 mcg/actuati on nasal spray 08-12 00:00: 00 Yes [id number] 1{spray } Use 1 [place] in each nostril daily. [facility] bromphenira mine-pseudo ephedrine-D M (BROMFED DM) 2-30-10 mg/5 mL syrup 08-12 00:00: 00 Yes [id number] 5mL Take 5 mL by mouth 4 (four) times daily as needed for Congestion /Allergies . [facility] azelastine 137 mcg (0.1 %) nasal spray 08-12 00:00: 00 Yes [id number] 1{spray } Use 1 [place] in each nostril 2 (two) times daily. Use in each nostril as directed [facility] fluticasone propionate 50 mcg/actuati on nasal spray 08-12 00:00: 00 Yes [id number] 1{spray } Use 1 [place] in each nostril daily. [facility] azelastine 137 mcg (0.1 %) nasal spray 08-12 00:00: 00 Yes [id number] 1{spray } Use 1 [place] in each nostril 2 (two) times daily. Use in each nostril as directed [facility] fluticasone propionate 50 mcg/actuati on nasal spray 08-12 00:00: 00 Yes [id number] 1{spray } Use 1 [place] in each nostril daily. [facility] azelastine 137 mcg (0.1 %) nasal spray 08-12 00:00: 00 06-25 00:00 :00 No [id number] 1{spray } Use 1 [place] in each nostril 2 (two) times daily. Use in each nostril as directed [facility] azelastine 137 mcg (0.1 %) nasal spray 08-12 00:00: 00 06-25 00:00 :00 No [id number] 1{spray } Use 1 [place] in each nostril 2 (two) times daily. Use in each nostril as directed [facility] fluticasone propionate 50 mcg/actuati on nasal spray 08-12 00:00: 00 02-25 00:00 :00 No [id number] 1{spray } Use 1 [place] in each nostril daily. [facility] fluticasone propionate 50 mcg/actuati on nasal spray 08-12 00:00: 00 02-25 00:00 :00 No [id number] 1{spray } Use 1 [place] in each nostril daily. [facility] fluticasone propionate 50 mcg/actuati on nasal spray 08-12 00:00: 00 02-25 00:00 :00 No [id number] 1{spray } Use 1 [place] in each nostril daily. [facility] bromphenira mine-pseudo ephedrine-D M (BROMFED DM) 2-30-10 mg/5 mL syrup 08-12 00:00: 00 02-06 00:00 :00 No [id number] 5mL Take 5 mL by mouth 4 (four) times daily as needed for Congestion /Allergies . [facility] VITAMIN C ORAL - 16:37: 02 Yes Take by mouth. [facility] VITAMIN C ORAL -25 16:37: 02 Yes Take by mouth. [facility] VITAMIN C ORAL 2022-0 06-16 16:37: 02 Yes Take by mouth. [facility] VITAMIN C ORAL 2022-0 06-16 16:37: 02 Yes Take by mouth. [facility] VITAMIN C ORAL 2021-0 06-16 16:37: 02 Yes Take by mouth. [facility] VITAMIN C ORAL 2-0 06-16 16:37: 02 Yes Take by mouth. [facility] VITAMIN C ORAL 2022-0 06-16 16:37: 02 Yes Take by mouth. [facility] VITAMIN C ORAL 2-0 06-16 16:37: 02 Yes Take by mouth. [facility] VITAMIN C ORAL 2021-0 06-16 16:37: 02 Yes Take by mouth. [facility] VITAMIN C ORAL 2-0 06-16 16:37: 02 Yes Take by mouth. [facility] 06-16 16:37: 02 Yes Take by mouth. [facility] VITAMIN C ORAL 2021-0 06-16 16:37: 02 Yes Take by mouth. [facility] VITAMIN C ORAL 2021-0 06-16 16:37: 02 Yes Take by mouth. [facility] VITAMIN C ORAL 2021-0 06-16 16:37: 02 Yes Take by mouth. [facility] VITAMIN C ORAL 2021-0 06-16 16:37: 02 Yes Take by mouth. [facility] VITAMIN C ORAL 2-0 06-16 16:37: 02 Yes Take by mouth. [facility] VITAMIN C ORAL 2022-0 06-16 16:37: 02 Yes Take by mouth. [facility] VITAMIN C ORAL 2-0 06-16 16:37: 02 Yes Take by mouth. [facility] VITAMIN C ORAL 2022-0 06-16 16:37: 02 Yes Take by mouth. [facility] VITAMIN C ORAL 2022-0 06-16 16:37: 02 Yes Take by mouth. [facility] VITAMIN C ORAL 2022-0 06-16 16:37: 02 Yes Take by mouth. [facility] 06-16 16:37: 02 Yes Take by mouth. [facility] VITAMIN C ORAL 2021-0 06-16 16:37: 02 Yes Take by mouth. [facility] V[facility] 2022-0 06-16 16:37: 02 Yes Take by mouth. [facility] VIT[facility]AL 2021-0 06-16 16:37: 02 Yes Take by mouth. [facility] VITAMIN C ORAL 2-0 06-16 16:37: 02 Yes Take by mouth. [facility] V[facility]AL 2-0 06-16 16:37: 02 Yes Take by mouth. [facility] V[facility]AL 2021-0 06-16 16:37: 02 Yes Take by mouth. [facility] VIT[facility]AL 2021-0 06-16 16:37: 02 Yes Take by mouth. [facility] VITAM[facility] C ORAL 2-0 06-16 16:37: 02 Yes Take by mouth. [facility] VITAM[facility] C ORAL 2-0 06-16 16:37: 02 Yes Take by mouth. [facility] VITAM[facility] C ORAL 2021-0 06-16 16:37: 02 Yes Take by mouth. [facility] VITAM[facility] C ORAL 2-0 06-16 16:37: 02 Yes Take by mouth. [facility] VITAMIN C ORAL 2-0 06-16 16:37: 02 Yes Take by mouth. [facility] VITAMIN C ORAL 2022-0 06-16 16:37: 02 Yes Take by mouth. [facility]-16 16:37: 02 Yes Take by mouth. [facility] VITAMIN C ORAL 2022-0 06-16 16:37: 02 Yes Take by mouth. [facility] VITAMIN C ORAL 2022-0 06-16 16:37: 02 Yes Take by mouth. [facility] 2022-0 06-16 16:37: 02 Yes Take by mouth. [facility] 2022-0 06-16 16:37: 02 Yes Take by mouth. [facility] V[facility]AL 202-0 06-16 16:37: 02 Yes Take by mouth. [facility] VITAMIN C ORAL 202-0 06-16 16:37: 02 Yes Take by mouth. [facility] VITAMIN C ORAL 2022-0 06-16 16:37: 02 Yes Take by mouth. [facility] VITAMIN C ORAL 2022-0 06-16 16:37: 02 Yes Take by mouth. [facility] ZINC ORAL 2-0 06-16 16:37: 02 Yes Take by mouth. [facility] VITAMIN C ORAL 2021-0 06-16 16:37: 02 Yes Take by mouth. [facility] ZINC ORAL 2022-0 06-16 16:37: 02 Yes Take by mouth. [facility] VITAMIN C ORAL 2021-0 06-16 16:37: 02 Yes Take by mouth. [facility] ZINC ORAL 2-0 06-16 16:37: 02 Yes Take by mouth. [facility] VITAMIN C ORAL 2021-0 06-16 16:37: 02 Yes Take by mouth. [facility] albuterol 90 mcg/actuati on inhaler 06-16 00:00: 00 Yes [id number] 2{puff} Inhale 2 Puffs every 6 (six) hours as needed for Wheezing or Shortness of Breath. [facility] albuterol 90 mcg/actuati on inhaler 06-16 00:00: 00 Yes [id number] 2{puff} Inhale 2 Puffs every 6 (six) hours as needed for Wheezing or Shortness of Breath. [facility] albuterol 90 mcg/actuati on inhaler 0 06-16 00:00: 00 Yes [id number] 2{puff} Inhale 2 Puffs every 6 (six) hours as needed for Wheezing or Shortness of Breath. [facility] albuterol 90 mcg/actuati on inhaler 0 06-16 00:00: 00 Yes [id number] 2{puff} Inhale 2 Puffs every 6 (six) hours as needed for Wheezing or Shortness of Breath. [facility] albuterol 90 mcg/actuati on inhaler 06-16 00:00: 00 Yes [id number] 2{puff} Inhale 2 Puffs every 6 (six) hours as needed for Wheezing or Shortness of Breath. [facility] albuterol 90 mcg/actuati on inhaler 06-16 00:00: 00 Yes [id number] 2{puff} Inhale 2 Puffs every 6 (six) hours as needed for Wheezing or Shortness of Breath. [facility] albuterol 90 mcg/actuati on inhaler 06-16 00:00: 00 Yes [id number] 2{puff} Inhale 2 Puffs every 6 (six) hours as needed for Wheezing or Shortness of Breath. [facility] albuterol 90 mcg/actuati on inhaler 06-16 00:00: 00 Yes [id number] 2{puff} Inhale 2 Puffs every 6 (six) hours as needed for Wheezing or Shortness of Breath. [facility] albuterol 90 mcg/actuati on inhaler 06-16 00:00: 00 Yes [id number] 2{puff} Inhale 2 Puffs every 6 (six) hours as needed for Wheezing or Shortness of Breath. [facility] albuterol 90 mcg/actuati on inhaler 06-16 00:00: 00 Yes [id number] 2{puff} Inhale 2 Puffs every 6 (six) hours as needed for Wheezing or Shortness of Breath. [facility] albuterol 90 mcg/actuati on inhaler 06-16 00:00: 00 Yes [id number] 2{puff} Inhale 2 Puffs every 6 (six) hours as needed for Wheezing or Shortness of Breath. [facility] albuterol 90 mcg/actuati on inhaler 06-16 00:00: 00 Yes [id number] 2{puff} Inhale 2 Puffs every 6 (six) hours as needed for Wheezing or Shortness of Breath. [facility] albuterol 90 mcg/actuati on inhaler 06-16 00:00: 00 Yes [id number] 2{puff} Inhale 2 Puffs every 6 (six) hours as needed for Wheezing or Shortness of Breath. [facility] albuterol 90 mcg/actuati on inhaler 06-16 00:00: 00 Yes [id number] 2{puff} Inhale 2 Puffs every 6 (six) hours as needed for Wheezing or Shortness of Breath. [facility] albuterol 90 mcg/actuati on inhaler 06-16 00:00: 00 Yes [id number] 2{puff} Inhale 2 Puffs every 6 (six) hours as needed for Wheezing or Shortness of Breath. [facility] albuterol 90 mcg/actuati on inhaler 06-16 00:00: 00 Yes [id number] 2{puff} Inhale 2 Puffs every 6 (six) hours as needed for Wheezing or Shortness of Breath. [facility] albuterol 90 mcg/actuati on inhaler 06-16 00:00: 00 Yes [id number] 2{puff} Inhale 2 Puffs every 6 (six) hours as needed for Wheezing or Shortness of Breath. [facility] albuterol 90 mcg/actuati on inhaler 06-16 00:00: 00 Yes [id number] 2{puff} Inhale 2 Puffs every 6 (six) hours as needed for Wheezing or Shortness of Breath. [facility] albuterol 90 mcg/actuati on inhaler 06-16 00:00: 00 Yes [id number] 2{puff} Inhale 2 Puffs every 6 (six) hours as needed for Wheezing or Shortness of Breath. [facility] albuterol 90 mcg/actuati on inhaler 06-16 00:00: 00 Yes [id number] 2{puff} Inhale 2 Puffs every 6 (six) hours as needed for Wheezing or Shortness of Breath. [facility] albuterol 90 mcg/actuati on inhaler 06-16 00:00: 00 Yes [id number] 2{puff} Inhale 2 Puffs every 6 (six) hours as needed for Wheezing or Shortness of Breath. [facility] albuterol 90 mcg/actuati on inhaler 06-16 00:00: 00 Yes [id number] 2{puff} Inhale 2 Puffs every 6 (six) hours as needed for Wheezing or Shortness of Breath. [facility] albuterol 90 mcg/actuati on inhaler 06-16 00:00: 00 Yes [id number] 2{puff} Inhale 2 Puffs every 6 (six) hours as needed for Wheezing or Shortness of Breath. [facility] albuterol 90 mcg/actuati on inhaler 06-16 00:00: 00 Yes [id number] 2{puff} Inhale 2 Puffs every 6 (six) hours as needed for Wheezing or Shortness of Breath. [facility] albuterol 90 mcg/actuati on inhaler 06-16 00:00: 00 Yes [id number] 2{puff} Inhale 2 Puffs every 6 (six) hours as needed for Wheezing or Shortness of Breath. [facility] albuterol 90 mcg/actuati on inhaler 06-16 00:00: 00 Yes [id number] 2{puff} Inhale 2 Puffs every 6 (six) hours as needed for Wheezing or Shortness of Breath. [facility] albuterol 90 mcg/actuati on inhaler 06-16 00:00: 00 Yes [id number] 2{puff} Inhale 2 Puffs every 6 (six) hours as needed for Wheezing or Shortness of Breath. [facility] albuterol 90 mcg/actuati on inhaler 06-16 00:00: 00 Yes [id number] 2{puff} Inhale 2 Puffs every 6 (six) hours as needed for Wheezing or Shortness of Breath. [facility] albuterol 90 mcg/actuati on inhaler 06-16 00:00: 00 Yes [id number] 2{puff} Inhale 2 Puffs every 6 (six) hours as needed for Wheezing or Shortness of Breath. [facility] albuterol 90 mcg/actuati on inhaler 06-16 00:00: 00 Yes [id number] 2{puff} Inhale 2 Puffs every 6 (six) hours as needed for Wheezing or Shortness of Breath. [facility] albuterol 90 mcg/actuati on inhaler 06-16 00:00: 00 Yes [id number] 2{puff} Inhale 2 Puffs every 6 (six) hours as needed for Wheezing or Shortness of Breath. [facility] albuterol 90 mcg/actuati on inhaler 06-16 00:00: 00 Yes [id number] 2{puff} Inhale 2 Puffs every 6 (six) hours as needed for Wheezing or Shortness of Breath. [facility] albuterol 90 mcg/actuati on inhaler 06-16 00:00: 00 Yes [id number] 2{puff} Inhale 2 Puffs every 6 (six) hours as needed for Wheezing or Shortness of Breath. [facility] albuterol 90 mcg/actuati on inhaler 06-16 00:00: 00 Yes [id number] 2{puff} Inhale 2 Puffs every 6 (six) hours as needed for Wheezing or Shortness of Breath. [facility] albuterol 90 mcg/actuati on inhaler 06-16 00:00: 00 Yes [id number] 2{puff} Inhale 2 Puffs every 6 (six) hours as needed for Wheezing or Shortness of Breath. [facility] albuterol 90 mcg/actuati on inhaler 06-16 00:00: 00 Yes [id number] 2{puff} Inhale 2 Puffs every 6 (six) hours as needed for Wheezing or Shortness of Breath. [facility] albuterol 90 mcg/actuati on inhaler 06-16 00:00: 00 Yes [id number] 2{puff} Inhale 2 Puffs every 6 (six) hours as needed for Wheezing or Shortness of Breath. [facility] albuterol 90 mcg/actuati on inhaler 06-16 00:00: 00 Yes [id number] 2{puff} Inhale 2 Puffs every 6 (six) hours as needed for Wheezing or Shortness of Breath. [facility] albuterol 90 mcg/actuati on inhaler 06-16 00:00: 00 Yes [id number] 2{puff} Inhale 2 Puffs every 6 (six) hours as needed for Wheezing or Shortness of Breath. [facility] albuterol 90 mcg/actuati on inhaler 06-16 00:00: 00 Yes [id number] 2{puff} Inhale 2 Puffs every 6 (six) hours as needed for Wheezing or Shortness of Breath. [facility] albuterol 90 mcg/actuati on inhaler 06-16 00:00: 00 Yes [id number] 2{puff} Inhale 2 Puffs every 6 (six) hours as needed for Wheezing or Shortness of Breath. [facility] albuterol 90 mcg/actuati on inhaler 06-16 00:00: 00 Yes [id number] 2{puff} Inhale 2 Puffs every 6 (six) hours as needed for Wheezing or Shortness of Breath. [facility] albuterol 90 mcg/actuati on inhaler 06-16 00:00: 00 Yes [id number] 2{puff} Inhale 2 Puffs every 6 (six) hours as needed for Wheezing or Shortness of Breath. [facility] albuterol 90 mcg/actuati on inhaler 06-16 00:00: 00 Yes [id number] 2{puff} Inhale 2 Puffs every 6 (six) hours as needed for Wheezing or Shortness of Breath. [facility] albuterol 90 mcg/actuati on inhaler 06-16 00:00: 00 Yes [id number] 2{puff} Inhale 2 Puffs every 6 (six) hours as needed for Wheezing or Shortness of Breath. [facility] albuterol 90 mcg/actuati on inhaler 06-16 00:00: 00 Yes [id number] 2{puff} Inhale 2 Puffs every 6 (six) hours as needed for Wheezing or Shortness of Breath. [facility] albuterol 90 mcg/actuati on inhaler 06-16 00:00: 00 Yes [id number] 2{puff} Inhale 2 Puffs every 6 (six) hours as needed for Wheezing or Shortness of Breath. [facility] gabapentin 300 mg capsule 2019-05 00:00: 00 Yes TK 1 C PO QHS [facility] gabapentin 300 mg capsule 2019-05 00:00: 00 Yes TK 1 C PO QHS [facility] gabapentin 300 mg capsule 2019-05 00:00: 00 Yes TK 1 C PO QHS [facility] gabapentin 300 mg capsule 2019-05 00:00: 00 Yes TK 1 C PO QHS [facility] gabapentin 300 mg capsule 2019-05 00:00: 00 Yes TK 1 C PO QHS [facility] gabapentin 300 mg capsule 2019-05 00:00: 00 Yes TK 1 C PO QHS [facility] gabapentin 300 mg capsule 2019-05 00:00: 00 Yes TK 1 C PO QHS [facility] gabapentin 300 mg capsule 2019-05 00:00: 00 Yes TK 1 C PO QHS [facility] gabapentin 300 mg capsule 2019-05 00:00: 00 Yes TK 1 C PO QHS [facility] gabapentin 300 mg capsule 2019-05 00:00: 00 Yes TK 1 C PO QHS [facility] gabapentin 300 mg capsule 2019-05 00:00: 00 Yes TK 1 C PO QHS [facility] gabapentin 300 mg capsule 2019-05 00:00: 00 Yes TK 1 C PO QHS [facility] gabapentin 300 mg capsule 2019-05-28 00:00: 00 Yes TK 1 C PO QHS [facility] gabapentin 300 mg capsule 2019-05-28 00:00: 00 Yes TK 1 C PO QHS [facility] gabapentin 300 mg capsule 2019-05-28 00:00: 00 Yes TK 1 C PO QHS [facility] gabapentin 300 mg capsule 2019-05 00:00: 00 Yes TK 1 C PO QHS [facility] gabapentin 300 mg capsule 2019-05 00:00: 00 Yes TK 1 C PO QHS [facility] gabapentin 300 mg capsule 2019-05 00:00: 00 Yes TK 1 C PO QHS [facility] gabapentin 300 mg capsule 2019-05 00:00: 00 Yes TK 1 C PO QHS [facility] gabapentin 300 mg capsule 2019-05 00:00: 00 Yes TK 1 C PO QHS [facility] gabapentin 300 mg capsule 2019-05 00:00: 00 Yes TK 1 C PO QHS [facility] gabapentin 300 mg capsule 2019-05 00:00: 00 Yes TK 1 C PO QHS [facility] gabapentin 300 mg capsule 2019-05 00:00: 00 Yes TK 1 C PO QHS [facility] gabapentin 300 mg capsule 2019-05 00:00: 00 Yes TK 1 C PO QHS [facility] gabapentin 300 mg capsule 2019-05 00:00: 00 Yes TK 1 C PO QHS [facility] gabapentin 300 mg capsule 2019-05 00:00: 00 Yes TK 1 C PO QHS [facility] gabapentin 300 mg capsule 2019-05 00:00: 00 Yes TK 1 C PO QHS [facility] gabapentin 300 mg capsule 2019-05-28 00:00: 00 Yes TK 1 C PO QHS [facility] gabapentin 300 mg capsule 2019-05 00:00: 00 Yes TK 1 C PO QHS [facility] gabapentin 300 mg capsule 2019-05 00:00: 00 Yes TK 1 C PO QHS [facility] gabapentin 300 mg capsule 2019-05 00:00: 00 Yes TK 1 C PO QHS [facility] gabapentin 300 mg capsule 2019-05 00:00: 00 Yes TK 1 C PO QHS [facility] gabapentin 300 mg capsule 2019-05 00:00: 00 Yes TK 1 C PO QHS [facility] gabapentin 300 mg capsule 2019-05 00:00: 00 Yes TK 1 C PO QHS [facility] gabapentin 300 mg capsule 2019-05 00:00: 00 Yes TK 1 C PO QHS [facility] gabapentin 300 mg capsule 2019-05 00:00: 00 Yes TK 1 C PO QHS [facility] gabapentin 300 mg capsule 2019-05 00:00: 00 Yes TK 1 C PO QHS [facility] gabapentin 300 mg capsule 2019-05 00:00: 00 Yes TK 1 C PO QHS [facility] gabapentin 300 mg capsule 2019-05 00:00: 00 Yes TK 1 C PO QHS [facility] gabapentin 300 mg capsule 2019-05 00:00: 00 Yes TK 1 C PO QHS [facility] gabapentin 300 mg capsule 2019-05 00:00: 00 Yes TK 1 C PO QHS [facility] gabapentin 300 mg capsule 2019-05 00:00: 00 Yes TK 1 C PO QHS [facility] gabapentin 300 mg capsule 2019-05 00:00: 00 Yes TK 1 C PO QHS [facility] gabapentin 300 mg capsule 2019-05 00:00: 00 Yes TK 1 C PO QHS [facility] gabapentin 300 mg capsule 2019-05 00:00: 00 Yes TK 1 C PO QHS [facility] gabapentin 300 mg capsule 2019-05 00:00: 00 Yes TK 1 C PO QHS [facility] gabapentin 300 mg capsule 2019-05 00:00: 00 Yes TK 1 C PO QHS [facility] gabapentin 300 mg capsule 2019-05 00:00: 00 Yes TK 1 C PO QHS [facility]epa (FISH OIL ORAL) 0 01-08 10:11: 54 Yes Take by mouth. [facility] docosahexan oic acid/epa (FISH OIL ORAL) 0 01-08 10:11: 54 Yes Take by mouth. [facility] docosahexan oic acid/epa (FISH OIL ORAL) 0 01-08 10:11: 54 Yes Take by mouth. [facility] docosahexan oic acid/epa (FISH OIL ORAL) 0 01-08 10:11: 54 Yes Take by mouth. [facility] docosahexan oic acid/epa (FISH OIL ORAL) 0 01-08 10:11: 54 Yes Take by mouth. [facility] docosahexan oic acid/epa (FISH OIL ORAL) 0 01-08 10:11: 54 Yes Take by mouth. [facility] docosahexan oic acid/epa (FISH OIL ORAL) 0 01-08 10:11: 54 Yes Take by mouth. [facility] docosahexan oic acid/epa (FISH OIL ORAL) 0 01-08 10:11: 54 Yes Take by mouth. [facility] docosahexan oic acid/epa (FISH OIL ORAL) 0 01-08 10:11: 54 Yes Take by mouth. [facility] docosahexan oic acid/epa (FISH OIL ORAL) 20190 01-08 10:11: 54 Yes Take by mouth. [facility] docosahexan oic acid/epa (FISH OIL ORAL) 0 01-08 10:11: 54 Yes Take by mouth. [facility] docosahexan oic acid/epa (FISH OIL ORAL) 20190 01-08 10:11: 54 Yes Take by mouth. [facility] docosahexan oic acid/epa (FISH OIL ORAL) 2019-0 8 10:11: 54 Yes Take by mouth. [facility] docosahex[facility] oic [facility]/epa (FISH OIL ORAL) 20190 01-08 10:11: 54 Yes Take by mouth. [facility] docosahexan oic acid/epa (FISH OIL ORAL) 2019-0 8 10:11: 54 Yes Take by mouth. [facility] docosahexan oic acid/epa (FISH OIL ORAL) 20190 01-08 10:11: 54 Yes Take by mouth. [facility] docosahexan oic acid/epa (FISH OIL ORAL) 20190 8 10:11: 54 Yes Take by mouth. [facility] docosahexan oic acid/epa (FISH OIL ORAL) 20190 8 10:11: 54 Yes Take by mouth. [facility] docosahexan oic acid/epa (FISH OIL ORAL) 20190 01-08 10:11: 54 Yes Take by mouth. [facility] docosahexan oic acid/epa (FISH OIL ORAL) 20190 8 10:11: 54 Yes Take by mouth. [facility] docosahexan oic acid/epa (FISH OIL ORAL) 20190 01-08 10:11: 54 Yes Take by mouth. [facility] docosahexan oic acid/epa (FISH OIL ORAL) 20190 01-08 10:11: 54 Yes Take by mouth. [facility] docosahexan oic acid/epa (FISH OIL ORAL) 20190 8 10:11: 54 Yes Take by mouth. [facility] docosahexan oic acid/epa (FISH OIL ORAL) 20190 01-08 10:11: 54 Yes Take by mouth. [facility] docosahexan oic acid/epa (FISH OIL ORAL) 20190 8 10:11: 54 Yes Take by mouth. [facility] docosahexan oic acid/epa (FISH OIL ORAL) 20190 01-08 10:11: 54 Yes Take by mouth. [facility] docosahexan oic acid/epa (FISH OIL ORAL) 20190 01-08 10:11: 54 Yes Take by mouth. [facility] docosahexan oic acid/epa (FISH OIL ORAL) 20190 01-08 10:11: 54 Yes Take by mouth. [facility] docosahexan oic acid/epa (FISH OIL ORAL) 0 01-08 10:11: 54 Yes Take by mouth. [facility] docosahexan oic acid/epa (FISH OIL ORAL) 20190 01-08 10:11: 54 Yes Take by mouth. [facility] CHOLECALCIF AVA, VITAMIN D3, (VITAMIN D3 ORAL) 0 01-08 10:11: 54 Yes Take by mouth. [facility] docosahexan oic acid/epa (FISH OIL ORAL) 0 01-08 10:11: 54 Yes Take by mouth. [facility] CHOLECALCIF AVA, VITAMIN D3, (VITAMIN D3 ORAL) 0 01-08 10:11: 54 Yes Take by mouth. [facility] docosahexan oic acid/epa (FISH OIL ORAL) 0 01-08 10:11: 54 Yes Take by mouth. [facility] CHOLECALCIF AVA, VITAMIN D3, (VITAMIN D3 ORAL) 0 01-08 10:11: 54 Yes Take by mouth. [facility] docosahexan oic acid/epa (FISH OIL ORAL) 0 01-08 10:11: 54 Yes Take by mouth. [facility] CHOLECALCIF AVA, VITAMIN D3, (VITAMIN D3 ORAL) 20190 01-08 10:11: 54 Yes Take by mouth. [facility] docosahexan oic acid/epa (FISH OIL ORAL) 0 01-08 10:11: 54 Yes Take by mouth. [facility] CHOLECALCIF AVA, VITAMIN D3, (VITAMIN D3 ORAL) 20190 01-08 10:11: 54 Yes Take by mouth. [facility] docosahexan oic acid/epa (FISH OIL ORAL) 20190 01-08 10:11: 54 Yes Take by mouth. [facility] CHOLECALCIF AVA, VITAMIN D3, (VITAMIN D3 ORAL) 20190 01-08 10:11: 54 Yes Take by mouth. [facility] docosahexan oic acid/epa (FISH OIL ORAL) 20190 01-08 10:11: 54 Yes Take by mouth. [facility] docosahexan oic acid/epa (FISH OIL ORAL) 20190 01-08 10:11: 54 Yes Take by mouth. [facility] docosahexan oic acid/epa (FISH OIL ORAL) 20190 01-08 10:11: 54 Yes Take by mouth. [facility] docosahexan oic acid/epa (FISH OIL ORAL) 20190 01-08 10:11: 54 Yes Take by mouth. [facility] docosahexan oic acid/epa (FISH OIL ORAL) 20190 01-08 10:11: 54 Yes Take by mouth. [facility] docosahexan oic acid/epa (FISH OIL ORAL) 20190 01-08 10:11: 54 Yes Take by mouth. [facility] docosahexan oic acid/epa (FISH OIL ORAL) 0 01-08 10:11: 54 Yes Take by mouth. [facility] docosahexan oic acid/epa (FISH OIL ORAL) 20190 01-08 10:11: 54 Yes Take by mouth. [facility] docosahexan oic acid/epa (FISH OIL ORAL) 20190 01-08 10:11: 54 Yes Take by mouth. [facility] docosahexan oic acid/epa (FISH OIL ORAL) 20190 01-08 10:11: 54 Yes Take by mouth. [facility] docosahexan oic acid/epa (FISH OIL ORAL) 20190 8 10:11: 54 Yes Take by mouth. [facility] docosahexan oic acid/epa (FISH OIL ORAL) 20190 01-08 10:11: 54 Yes Take by mouth. [facility] docosahexan oic acid/epa (FISH OIL ORAL) 2019-0 01-08 10:11: 54 Yes Take by mouth. [facility] Immunizations Ordered Immunization Name Filled Immunization Name Date Status Comments Source Influenza Virus Vaccine Quad .5 mL IM 6+ MO 2020-05-01 00:00:00 Completed [facility] Influenza Virus Vaccine Quad .5 mL IM 6+ MO 2020-05-01 00:00:00 Completed [facility] Influenza Virus Vaccine Quad .5 mL IM 6+ MO 2020-05-01 00:00:00 Completed [facility] Influenza Virus Vaccine Quad .5 mL IM 6+ MO 2020-05-01 00:00:00 Completed [facility] Influenza Virus Vaccine Quad .5 mL IM 6+ MO 2020-05-01 00:00:00 Completed [facility] Influenza Virus Vaccine Quad .5 mL IM 6+ MO 2020-05-01 00:00:00 Completed [facility] Influenza Virus Vaccine Quad .5 mL IM 6+ MO 2020-05-01 00:00:00 Completed [facility] Influenza Virus Vaccine Quad .5 mL IM 6+ MO 2020-05-01 00:00:00 Completed [facility] Influenza Virus Vaccine Quad .5 mL IM 6+ MO 2020-05-01 00:00:00 Completed [facility] Influenza Virus Vaccine Quad .5 mL IM 6+ MO 2020-05-01 00:00:00 Completed [facility] Influenza Virus Vaccine Quad .5 mL IM 6+ MO 2020-05-01 00:00:00 Completed [facility] Influenza Virus Vaccine Quad .5 mL IM 6+ MO 2020-05-01 00:00:00 Completed [facility] Influenza Virus Vaccine Quad .5 mL IM 6+ MO 2020-05-01 00:00:00 Completed [facility] Influenza Virus Vaccine Quad .5 mL IM 6+ MO 2020-05-01 00:00:00 Completed [facility] Influenza Virus Vaccine Quad .5 mL IM 6+ MO 2020-05-01 00:00:00 Completed [facility] Influenza Virus Vaccine Quad .5 mL IM 6+ MO 2020-05-01 00:00:00 Completed [facility] Influenza Virus Vaccine Quad .5 mL IM 6+ MO 2020-05-01 00:00:00 Completed [facility] Influenza Virus Vaccine Quad .5 mL IM 6+ MO 2020-05-01 00:00:00 Completed [facility] Influenza Virus Vaccine Quad .5 mL IM 6+ MO 2020-05-01 00:00:00 Completed [facility] Influenza Virus Vaccine Quad .5 mL IM 6+ MO 2020-05-01 00:00:00 Completed [facility] Influenza Virus Vaccine Quad .5 mL IM 6+ MO 2020-05-01 00:00:00 Completed [facility] Influenza Virus Vaccine Quad .5 mL IM 6+ MO 2020-05-01 00:00:00 Completed [facility] Influenza Virus Vaccine Quad .5 mL IM 6+ MO 2020-05-01 00:00:00 Completed [facility] Influenza Virus Vaccine Quad .5 mL IM 6+ MO 2020-05-01 00:00:00 Completed [facility] Influenza Virus Vaccine Quad .5 mL IM 6+ MO 2020-05-01 00:00:00 Completed [facility] Influenza Virus Vaccine Quad .5 mL IM 6+ MO 2020-05-01 00:00:00 Completed [facility] Influenza Virus Vaccine Quad .5 mL IM 6+ MO 2020-05-01 00:00:00 Completed [facility] Influenza Virus Vaccine Quad .5 mL IM 6+ MO 2020-05-01 00:00:00 Completed [facility] Influenza Virus Vaccine Quad .5 mL IM 6+ MO 2020-05-01 00:00:00 Completed [facility] Influenza Virus Vaccine Quad .5 mL IM 6+ MO 2020-05-01 00:00:00 Completed [facility] Influenza Virus Vaccine Quad .5 mL IM 6+ MO 2020-05-01 00:00:00 Completed [facility] Influenza Virus Vaccine Quad .5 mL IM 6+ MO 2020-05-01 00:00:00 Completed [facility] Influenza Virus Vaccine Quad .5 mL IM 6+ MO 2020-05-01 00:00:00 Completed [facility] Influenza Virus Vaccine Quad .5 mL IM 6+ MO 2020-05-01 00:00:00 Completed [facility] Influenza Virus Vaccine Quad .5 mL IM 6+ MO 2019-04-23 00:00:00 Completed [facility] Influenza Virus Vaccine Quad .5 mL IM 6+ MO 2019-04-23 00:00:00 Completed [facility] Influenza Virus Vaccine Quad .5 mL IM 6+ MO 2019-04-23 00:00:00 Completed [facility] Influenza Virus Vaccine Quad .5 mL IM 6+ MO 2019-04-23 00:00:00 Completed [facility] Influenza Virus Vaccine Quad .5 mL IM 6+ MO 2019-04-23 00:00:00 Completed [facility] Influenza Virus Vaccine Quad .5 mL IM 6+ MO 2019-04-23 00:00:00 Completed [facility] Influenza Virus Vaccine Quad .5 mL IM 6+ MO 2019-04-23 00:00:00 Completed [facility] Influenza Virus Vaccine Quad .5 mL IM 6+ MO 2019-04-23 00:00:00 Completed [facility] Influenza Virus Vaccine Quad .5 mL IM 6+ MO 2019-04-23 00:00:00 Completed [facility] Influenza Virus Vaccine Quad .5 mL IM 6+ MO 2019-04-23 00:00:00 Completed [facility] Influenza Virus Vaccine Quad .5 mL IM 6+ MO 2019-04-23 00:00:00 Completed [facility] Influenza Virus Vaccine Quad .5 mL IM 6+ MO 2019-04-23 00:00:00 Completed [facility] Influenza Virus Vaccine Quad .5 mL IM 6+ MO 2019-04-23 00:00:00 Completed [facility] Influenza Virus Vaccine Quad .5 mL IM 6+ MO 2019-04-23 00:00:00 Completed [facility] Influenza Virus Vaccine Quad .5 mL IM 6+ MO 2019-04-23 00:00:00 Completed [facility] Influenza Virus Vaccine Quad .5 mL IM 6+ MO 2019-04-23 00:00:00 Completed [facility] Influenza Virus Vaccine Quad .5 mL IM 6+ MO 2019-04-23 00:00:00 Completed [facility] Influenza Virus Vaccine Quad .5 mL IM 6+ MO 2019-04-23 00:00:00 Completed [facility] Influenza Virus Vaccine Quad .5 mL IM 6+ MO 2019-04-23 00:00:00 Completed [facility] Influenza Virus Vaccine Quad .5 mL IM 6+ MO 2019-04-23 00:00:00 Completed [facility] Influenza Virus Vaccine Quad .5 mL IM 6+ MO 2019-04-23 00:00:00 Completed [facility] Influenza Virus Vaccine Quad .5 mL IM 6+ MO 2019-04-23 00:00:00 Completed [facility] Influenza Virus Vaccine Quad .5 mL IM 6+ MO 2019-04-23 00:00:00 Completed [facility] Influenza Virus Vaccine Quad .5 mL IM 6+ MO 2019-04-23 00:00:00 Completed [facility] Influenza Virus Vaccine Quad .5 mL IM 6+ MO 2019-04-23 00:00:00 Completed [facility] Influenza Virus Vaccine Quad .5 mL IM 6+ MO 2019-04-23 00:00:00 Completed [facility] Influenza Virus Vaccine Quad .5 mL IM 6+ MO 2019-04-23 00:00:00 Completed [facility] Influenza Virus Vaccine Quad .5 mL IM 6+ MO 2019-04-23 00:00:00 Completed [facility] Influenza Virus Vaccine Quad .5 mL IM 6+ MO 2019-04-23 00:00:00 Completed [facility] Influenza Virus Vaccine Quad .5 mL IM 6+ MO 2019-04-23 00:00:00 Completed [facility] Influenza Virus Vaccine Quad .5 mL IM 6+ MO 2019-04-23 00:00:00 Completed [facility] Influenza Virus Vaccine Quad .5 mL IM 6+ MO 2019-04-23 00:00:00 Completed [facility] Influenza Virus Vaccine Quad .5 mL IM 6+ MO 2019-04-23 00:00:00 Completed [facility] Influenza Virus Vaccine Quad .5 mL IM 6+ MO 2019-04-23 00:00:00 Completed [facility] TDAP (ADACEL) VACCINE 2017-02-11 00:00:00 Completed [facility] TDAP (ADACEL) VACCINE 2017-02-11 00:00:00 Completed [facility] TDAP (ADACEL) VACCINE 2017-02-11 00:00:00 Completed [facility] TDAP (ADACEL) VACCINE 2017-02-11 00:00:00 Completed [facility] TDAP (ADACEL) VACCINE 2017-02-11 00:00:00 Completed [facility] TDAP (ADACEL) VACCINE 2017-02-11 00:00:00 Completed [facility] TDAP (ADACEL) VACCINE 2017-02-11 00:00:00 Completed [facility] TDAP (ADACEL) VACCINE 2017-02-11 00:00:00 Completed [facility] TDAP (ADACEL) VACCINE 2017-02-11 00:00:00 Completed [facility] TDAP (ADACEL) VACCINE 2017-02-11 00:00:00 Completed [facility] TDAP (ADACEL) VACCINE 2017-02-11 00:00:00 Completed [facility] TDAP (ADACEL) VACCINE 2017-02-11 00:00:00 Completed [facility] TDAP (ADACEL) VACCINE 2017-02-11 00:00:00 Completed [facility] TDAP (ADACEL) VACCINE 2017-02-11 00:00:00 Completed [facility] TDAP (ADACEL) VACCINE 2017-02-11 00:00:00 Completed [facility] TDAP (ADACEL) VACCINE 2017-02-11 00:00:00 Completed [facility] TDAP (ADACEL) VACCINE 2017-02-11 00:00:00 Completed [facility] TDAP (ADACEL) VACCINE 2017-02-11 00:00:00 Completed [facility] TDAP (ADACEL) VACCINE 2017-02-11 00:00:00 Completed [facility] TDAP (ADACEL) VACCINE 2017-02-11 00:00:00 Completed [facility] TDAP (ADACEL) VACCINE 2017-02-11 00:00:00 Completed [facility] TDAP (ADACEL) VACCINE 2017-02-11 00:00:00 Completed [facility] TDAP (ADACEL) VACCINE 2017-02-11 00:00:00 Completed [facility] TDAP (ADACEL) VACCINE 2017-02-11 00:00:00 Completed [facility] TDAP (ADACEL) VACCINE 2017-02-11 00:00:00 Completed [facility] TDAP (ADACEL) VACCINE 2017-02-11 00:00:00 Completed [facility] TDAP (ADACEL) VACCINE 2017-02-11 00:00:00 Completed [facility] TDAP (ADACEL) VACCINE 2017-02-11 00:00:00 Completed [facility] TDAP (ADACEL) VACCINE 2017-02-11 00:00:00 Completed [facility] TDAP (ADACEL) VACCINE 2017-02-11 00:00:00 Completed [facility] TDAP (ADACEL) VACCINE 2017-02-11 00:00:00 Completed [facility] TDAP (ADACEL) VACCINE 2017-02-11 00:00:00 Completed [facility] TDAP (ADACEL) VACCINE 2017-02-11 00:00:00 Completed [facility] TDAP (ADACEL) VACCINE 2017-02-11 00:00:00 Completed [facility] TDAP (ADACEL) VACCINE Unknown Completed [facility] Influenza Virus Vaccine Quad .5 mL IM 6+ MO (FLUZONE/FLULAVAL/F LUARIX) Unknown Completed [facility] Influenza Virus Vaccine Quad .5 mL IM 6+ MO (FLUZONE/FLULAVAL/F LUARIX) Unknown Completed [facility] TDAP (ADACEL) VACCINE Unknown Completed [facility] Influenza Virus Vaccine Quad .5 mL IM 6+ MO (FLUZONE/FLULAVAL/F LUARIX) Unknown Completed [facility] Influenza Virus Vaccine Quad .5 mL IM 6+ MO (FLUZONE/FLULAVAL/F LUARIX) Unknown Completed [facility] TDAP (ADACEL) VACCINE Unknown Completed [facility] Influenza Virus Vaccine Quad .5 mL IM 6+ MO (FLUZONE/FLULAVAL/F LUARIX) Unknown Completed [facility] Influenza Virus Vaccine Quad .5 mL IM 6+ MO (FLUZONE/FLULAVAL/F LUARIX) Unknown Completed [facility] TDAP (ADACEL) VACCINE Unknown Completed [facility] Influenza Virus Vaccine Quad .5 mL IM 6+ MO (FLUZONE/FLULAVAL/F LUARIX) Unknown Completed [facility] Influenza Virus Vaccine Quad .5 mL IM 6+ MO (FLUZONE/FLULAVAL/F LUARIX) Unknown Completed [facility] TDAP (ADACEL) VACCINE Unknown Completed [facility] Influenza Virus Vaccine Quad .5 mL IM 6+ MO (FLUZONE/FLULAVAL/F LUARIX) Unknown Completed [facility] Influenza Virus Vaccine Quad .5 mL IM 6+ MO (FLUZONE/FLULAVAL/F LUARIX) Unknown Completed [facility] TDAP (ADACEL) VACCINE Unknown Completed [facility] Influenza Virus Vaccine Quad .5 mL IM 6+ MO (FLUZONE/FLULAVAL/F LUARIX) Unknown Completed [facility] Influenza Virus Vaccine Quad .5 mL IM 6+ MO (FLUZONE/FLULAVAL/F LUARIX) Unknown Completed [facility] TDAP (ADACEL) VACCINE Unknown Completed [facility] Influenza Virus Vaccine Quad .5 mL IM 6+ MO (FLUZONE/FLULAVAL/F LUARIX) Unknown Completed [facility] Influenza Virus Vaccine Quad .5 mL IM 6+ MO (FLUZONE/FLULAVAL/F LUARIX) Unknown Completed [facility] TDAP (ADACEL) VACCINE Unknown Completed [facility] Influenza Virus Vaccine Quad .5 mL IM 6+ MO (FLUZONE/FLULAVAL/F LUARIX) Unknown Completed [facility] Influenza Virus Vaccine Quad .5 mL IM 6+ MO (FLUZONE/FLULAVAL/F LUARIX) Unknown Completed [facility] TDAP (ADACEL) VACCINE Unknown Completed [facility] Influenza Virus Vaccine Quad .5 mL IM 6+ MO (FLUZONE/FLULAVAL/F LUARIX) Unknown Completed [facility] Influenza Virus Vaccine Quad .5 mL IM 6+ MO (FLUZONE/FLULAVAL/F LUARIX) Unknown Completed [facility] TDAP (ADACEL) VACCINE Unknown Completed [facility] Influenza Virus Vaccine Quad .5 mL IM 6+ MO (FLUZONE/FLULAVAL/F LUARIX) Unknown Completed [facility] Influenza Virus Vaccine Quad .5 mL IM 6+ MO (FLUZONE/FLULAVAL/F LUARIX) Unknown Completed [facility] TDAP (ADACEL) VACCINE Unknown Completed [facility] Influenza Virus Vaccine Quad .5 mL IM 6+ MO (FLUZONE/FLULAVAL/F LUARIX) Unknown Completed [facility] Influenza Virus Vaccine Quad .5 mL IM 6+ MO (FLUZONE/FLULAVAL/F LUARIX) Unknown Completed [facility] TDAP (ADACEL) VACCINE Unknown Completed [facility] Influenza Virus Vaccine Quad .5 mL IM 6+ MO (FLUZONE/FLULAVAL/F LUARIX) Unknown Completed [facility] Influenza Virus Vaccine Quad .5 mL IM 6+ MO (FLUZONE/FLULAVAL/F LUARIX) Unknown Completed [facility] TDAP (ADACEL) VACCINE Unknown Completed [facility] Influenza Virus Vaccine Quad .5 mL IM 6+ MO (FLUZONE/FLULAVAL/F LUARIX) Unknown Completed [facility] Influenza Virus Vaccine Quad .5 mL IM 6+ MO (FLUZONE/FLULAVAL/F LUARIX) Unknown Completed [facility] TDAP (ADACEL) VACCINE Unknown Completed [facility] Influenza Virus Vaccine Quad .5 mL IM 6+ MO (FLUZONE/FLULAVAL/F LUARIX) Unknown Completed [facility] Influenza Virus Vaccine Quad .5 mL IM 6+ MO (FLUZONE/FLULAVAL/F LUARIX) Unknown Completed [facility] Vital Signs Vital Name Observation Time Observation Value Comments S ource Systolic blood pressure 2023-07-07 00:26:00 115 mm[Hg] [facility] Diastolic blood pressure 2023-07-07 00:26:00 70 mm[Hg] [facility] Heart rate 2023-07-07 00:26:00 86 /min [facility] Body temperature 2023-07-07 00:26:00 36.67 Miri [facility] Respiratory rate 2023-07-07 00:26:00 16 /min [facility] Body height 2023-07-07 00:26:00 152.4 cm [facility] Body weight 2023-07-07 00:26:00 72.122 kg [facility] BMI 2023-07-07 00:26:00 31.05 kg/m2 [facility] Oxygen saturation in Arterial blood by Pulse oximetry 2023-07-07 00:26:00 98 /min [facility] Systolic blood pressure 2023-06-16 19:59:00 127 mm[Hg] [facility] Diastolic blood pressure 2023-06-16 19:59:00 75 mm[Hg] [facility] Heart rate 2023-06-16 19:59:00 80 /min [facility] Body height 2023-06-16 19:59:00 [facility] 2023-06-16 19:59:00 70.761 kg [facility] BMI 2023-06-16 19:59:00 30.47 kg/m2 [facility] Oxygen saturation in Arterial blood by Pulse oximetry 2023-06-16 19:59:00 98 /min [facility] Systolic blood pressure 2022-12-24 19:34:00 113 mm[Hg] [facility] Diastolic blood pressure 2022-12-24 19:34:00 55 mm[Hg] [facility] Heart rate 2022-12-24 19:34:00 89 /min [facility] Body height 2022-12-24 19:34:00 [facility].4 [facility] Body weight 2022-12-24 19:34:00 70.171 kg [facility] BMI 2022-12-24 19:34:00 30.21 kg/m2 [facility] Oxygen saturation in Arterial blood by Pulse oximetry 2022-12-24 19:34:00 97 /min [facility] Systolic blood pressure 2022-10-29 15:35:00 128 mm[Hg] [facility] Diastolic blood pressure 2022-10-29 15:35:00 75 mm[Hg] [facility] Heart rate 2022-10-29 15:35:00 75 /min [facility] Respiratory rate 2022-10-29 15:35:00 13 /min [facility] Oxygen saturation in Arterial blood by Pulse oximetry 2022-10-29 15:35:00 100 /min [facility] Body temperature 2022-10-29 13:30:00 36.61 Miri [facility] Body height 2022-10-29 13:30:00 152.4 cm [facility] Body weight 2022-10-29 13:30:00 72.122 kg [facility] BMI 2022-10-29 13:30:00 31.05 kg/m2 [facility] Systolic blood pressure 2022-10-26 20:17:00 119 mm[Hg] [facility] Diastolic blood pressure 2022-10-26 20:17:00 73 mm[Hg] [facility] Heart rate 2022-10-26 20:17:00 79 /min [facility] Body height 2022-10-26 20:17:00 152.4 cm [facility] Body weight 2022-10-26 20:17:00 70.035 kg [facility] BMI 2022-10-26 20:17:00 30.15 kg/m2 [facility] Oxygen saturation in Arterial blood by Pulse oximetry 2022-10-26 20:17:00 99 /min [facility] Systolic blood pressure 2022-10-01 20:35:00 123 mm[Hg] [facility] Diastolic blood pressure 2022-10-01 20:35:00 85 mm[Hg] [facility] Heart rate 2022-10-01 20:35:00 89 /min [facility] Body height 2022-10-01 20:35:00 152.4 cm [facility] Body weight 2022-10-01 20:35:00 68.584 kg [facility] BMI 2022-10-01 20:35:00 29.53 kg/m2 [facility] Oxygen saturation in Arterial blood by Pulse oximetry 2022-10-01 20:35:00 99 /min [facility] Systolic blood pressure 2022-06-25 21:42:00 130 mm[Hg] [facility] Diastolic blood pressure 2022-06-25 21:42:00 74 mm[Hg] [facility] Heart rate 2022-06-25 21:42:00 80 /min [facility] Body height 2022-06-25 21:42:00 152.4 cm [facility] Body weight 2022-06-25 21:42:00 67.405 kg [facility] BMI 2022-06-25 21:42:00 29.02 kg/m2 [facility] Oxygen saturation in Arterial blood by Pulse oximetry 2022-06-25 21:42:00 100 /min [facility] Systolic blood pressure 2022-04-09 20:53:00 116 mm[Hg] [facility] Diastolic blood pressure 2022-04-09 20:53:00 54 mm[Hg] [facility] Heart rate 2022-04-09 20:53:00 88 /min [facility] Body temperature 2022-04-09 20:53:00 36.56 Miri [facility] Respiratory rate 2022-04-09 20:53:00 18 /min [facility] Body height 2022-04-09 20:53:00 152.4 cm [facility] Body weight 2022-04-09 20:53:00 63.504 kg [facility] BMI 2022-04-09 20:53:00 27.34 kg/m2 [facility] Oxygen saturation in Arterial blood by Pulse oximetry 2022-04-09 20:53:00 98 /min [facility] Systolic blood pressure 2022-03-29 14:17:00 101 mm[Hg] [facility] Diastolic blood pressure 2022-03-29 14:17:00 67 mm[Hg] [facility] Heart rate 2022-03-29 14:17:00 86 /min [facility] Body height 2022-03-29 14:17:00 152.4 cm [facility] Body weight 2022-03-29 14:17:00 65.318 kg [facility] BMI 2022-03-29 14:17:00 28.12 kg/m2 [facility] Oxygen saturation in Arterial blood by Pulse oximetry 2022-03-29 14:17:00 97 /min [facility] Systolic blood pressure 2022-02-25 19:37:00 110 mm[Hg] [facility] Diastolic blood pressure 2022-02-25 19:37:00 72 mm[Hg] [facility] Heart rate 2022-02-25 19:37:00 80 /min [facility] Body height 2022-02-25 19:37:00 152.4 cm [facility] Body weight 2022-02-25 19:37:00 62.37 kg [facility] BMI 2022-02-25 19:37:00 26.85 kg/m2 [facility] Oxygen saturation in Arterial blood by Pulse oximetry 2022-02-25 19:37:00 100 /min [facility] Systolic blood pressure 2022-02-06 15:09:00 114 mm[Hg] [facility] Diastolic blood pressure 2022-02-06 15:09:00 47 mm[Hg] [facility] Heart rate 2022-02-06 15:09:00 74 /min [facility] Respiratory rate 2022-02-06 15:09:00 16 /min [facility] Oxygen saturation in Arterial blood by Pulse oximetry 2022-02-06 15:09:00 99 /min [facility] Body temperature 2022-02-06 13:29:00 36.89 Miri [facility] Body height 2022-02-06 13:29:00 152.4 cm [facility] Body weight 2022-02-06 13:29:00 61.236 kg [facility] BMI 2022-02-06 13:29:00 26.37 kg/m2 [facility] Systolic blood pressure 2021-09-07 18:19:00 121 mm[Hg] [facility] Diastolic blood pressure 2021-09-07 18:19:00 81 mm[Hg] [facility] Heart rate 2021-09-07 18:19:00 87 /min [facility] Body temperature 2021-09-07 18:19:00 36.5 Miri [facility] Respiratory rate 2021-09-07 18:19:00 16 /min [facility] Body height 2021-09-07 18:19:00 152.4 cm [facility] Body weight 2021-09-07 18:19:00 64.411 kg [facility] BMI 2021-09-07 18:19:00 27.73 kg/m2 [facility] Procedures Procedure Date / Time Performed Performing Clinician Source POCT URINALYSIS 2023-07-07 00:32:00 Sherri Lipscomb [facility] TOTAL IRON BINDING CAPACITY 2023-06-16 20:30:00 Sixto [facility] FREE T4 2023-06-16 20:30:00 Sixto Bony [facility] THYROID STIMULATING HORMONE 2023-06-16 20:30:00 Sixto [facility] GLYCOSYLATED HEMOGLOBIN (A1C) 2023-06-16 20:30:00 Sixto [facility] VITAMIN D, 25-OH 2023-06-16 20:30:00 Bony Henson [facility] HIV 1/2 AG-AB WITH REFLEX 2023-06-16 20:30:00 Sixto Bony [facility] ASSIGNMENT OF BENEFITS 2022-11-29 13:32:32 Docto r Unassigned, [place] [facility] CT ABDOMEN PELVIS W CONTRAST 2022-10-29 15:44:43 Sofia Day [facility] LIPASE 2022-10-29 13:41:00 Sofia aDy [facility] TROPONIN I 2022-10-29 13:41:00 Sofia Day [facility] COMP. METABOLIC PANEL ([id number]) 2022-10-29 13:41:00 Sofia Day [facility] CBC WITH DIFF 2022-10-29 13:41:00 [facility] 2022-10-29 13:41:00 [facility] 2022-10-29 13:40:00 Viviane Day ra [facility] CONSENT/REFUSAL FOR DIAGNOSIS AND TREATMENT 2022-10-29 13:26:53 Doctor Unassigned, [place] [facility] ASSIGNMENT OF BENEFITS 2022-07-22 14:22:02 Docto r Unassigned, [place] [facility] LIPASE 2022-04-09 21:55:00 Jessica Jay [facility] COMP. METABOLIC PANEL ([id number]) 2022-04-09 21:55:00 Jessica Jay [facility] CBC WITH DIFF 2022-04-09 21:55:00 Jessica Jay [facility] PROTHROMBIN TIME / INR 2022-04-09 21:55:00 Stefania Jay [facility] ACTIVATED PARTIAL THRMPLAS DONI 2022-04-09 21:55:00 Jessica Jay [facility] URINALYSIS 2022-04-09 21:55:00 Jessica Jay [facility] CONSENT/REFUSAL FOR DIAGNOSIS AND TREATMENT 2022-04-09 20:48:30 Doctor Unassigned, [place] [facility] COMP. METABOLIC PANEL ([id number]) 2022-02-25 20:38:00 Bony Henson [facility] CBC WITH DIFF 2022-02-25 20:38:[address] [facility] ABDOMEN PELVIS W CONTRAST 2022-02-06 15:03:09 Harris Mata [facility] COMP. METABOLIC PANEL ([id number]) 2022-02-06 14:52:00 Harris Mata [facility] CBC WITH DIFF 2022-02-06 14:52:00 [facility] URINALYSIS 2022-02-06 13:49:00 Harris Mata [facility] CONSENT/REFUSAL FOR DIAGNOSIS AND TREATMENT 2022-02-06 13:24:46 Doctor Unassigned, [place] [facility] US ABDOMEN LIMITED 2021-09-16 14:11:00 Callie Freeman [facility] CONSENT/REFUSAL FOR DIAGNOSIS AND TREATMENT 2021-09-16 13:51:28 Doctor Unassigned, [place] [facility] ASSIGNMENT OF BENEFITS 2021-09-16 13:51:12 Docto r Unassigned, [place] [facility] Encounters Start Date/Time End Date/Time Encounter Type Admission Type Attending [facility] Facility Care Department Encounter ID Source 2023-07-06 18:00:00 2023-07-06 18:52:05 Outpatient R REKHAJULIA [facility] [id number] [facility] 2023-07-06 18:00:00 2023-07-06 18:20:00 Urgent Care Hueychante Karl[place]ie Unknown, Attending [facility] 1..840.114 [id number] [facility] 2023-06-20 00:00:00 2023-06-20 00:00:00 Patient Secure Msg Doctor Unassigned, [place] [facility] 1..840.114 [id number] [facility] 2023-06-16 14:45:00 2023-06-16 14:45:00 Clerk Manager Visit Lab, [facility] 1..840.114 [id number] [facility] 2023-06-16 14:00:00 2023-06-16 14:23:50 Outpatient R BONY HENSON [facility] [id number] [facility] 2023-06-16 14:00:00 2023-06-16 14:23:50 [facility] 1..840.114 350.1.13.10 4.2.7.2.686 [id number] [id number] [facility] 2023-06-15 00:00:00 2023-06-15 00:00:00 [facility] 1.2.840.114 350.1.13.10 4.2.7.2.686 [id number] 044 [id number] [facility] 2023-05-02 00:00:00 2023-05-02 00:00:00 Patient Secure Msg Ruma [facility]Park[facility] PATTEN?[facility] 1.2.840.114 350.1.13.10 4.2.7.2.686 [id number] 044 [id number] [facility] 2023-05-01 00:00:00 2023-05-01 00:00:00 [facility] 1.2.840.114 350.1.13.10 4.2.7.2.686 [id number] [id number] [facility] 2023-02-14 00:00:00 2023-02-14 00:00:00 RefDustin [facility]unnNov[facility] CenterUS[facility]EN?[facility] 1.2.840.114 350.1.13.10 4.2.7.2.686 [id number] 044 [id number] [facility] 2022-12-31 16:30:00 2022-12-31 16:30:00 Outpatient R BONY HENSON [facility] [id number] [facility] 2022-12-24 14:30:00 2022-12-24 15:00:00 Office Visit [facility] 1.2.840.114 350.1.13.10 4.2.7.2.686 [id number] [facility] 2022-12-24 14:30:00 2022-12-24 14:30:00 Outpatient R RUMA HENSONTHIA [facility] [id number] [facility] 2022-11-29 08:34:37 2022-11-29 23:59:00 Outpatient R SIXTO [facility] [id number] [facility] 2022-11-29 08:34:37 2022-11-29 23:59:00 Hospital Encounter Sixto [facility] 1.840.114 350.1.13.10 4.2.7.2.686 [id number] [facility] 2022-11-29 00:00:00 2022-11-29 00:00:00 Orders Only Doctor Unassigned, [place] [facility] 1.0.114 350.1.13.10 4.2.7.2.686 [id number] [facility] 2022-10-29 08:31:00 2022-10-29 12:14:00 Emergency X SOFIA DAY [facility] [id number] [facility] 2022-10-29 08:31:00 2022-10-29 12:14:00 Emergency Sofia Day [facility] 1.0.114 350.1.13.10 4.2.7.2.686 [id number] [facility] 2022-10-29 00:00:00 2022-10-29 00:00:00 Orders Only Doctor Unassigned, [place] [facility] 1.0.114 350.1.13.10 4.2.7.2.686 [id number] [facility] 2022-10-29 00:00:00 2022-10-29 00:00:00 Patient Secure Msg [facility]xto [facility] 1..114 350.1.13.10 4.2.7.2.686 [id number] [facility] 2022-10-28 00:00:00 2022-10-28 00:00:00 Telephone [facility] 1..840.114 350.1.13.10 4.2.7.2.686 [id number] 044 [id number] [facility] 2022-10-27 00:00:00 2022-10-27 00:00:00 [facility] 1..840.114 350.1.13.10 4.2.7.2.686 [id number] [id number] [facility] 2022-10-26 15:30:00 2022-10-26 15:52:43 Outpatient R BONY HENSON [facility] [id number] [facility] 2022-10-26 15:30:00 2022-10-26 15:52:43 Office Visit [facility] 1..840.114 350.1.13.10 4.2.7.2.686 [id number] [id number] [facility] 2022-10-22 00:00:00 2022-10-22 00:00:00 Outpatient R BONY HENSON [facility] [id number] [facility] 2022-10-01 15:30:00 2022-10-01 16:24:36 Outpatient R BONY HENSON [facility] [id number] [facility] 2022-10-01 15:30:00 2022-10-01 16:24:36 Office Visit [facility]Park[facility]EN?[facility] 1..840.114 350.1.13.10 4.2.7.2.686 [id number] [facility] 2022-07-22 08:45:00 2022-07-22 09:00:00 Clerk Manager Visit Pob, Adc Lab Main Bony Henson [facility] BU[facility] 1..840.114 350.1.13.10 4.2.7.2.686 [id number] [facility] 2022-07-22 08:45:00 2022-07-22 08:45:00 Outpatient Arminda LYLEBONY LO [facility] [id number] [facility] 2022-07-22 00:00:00 2022-07-22 00:00:00 Orders Only Doctor Unassigned, [place] [facility] 1.840.114 350.1.13.10 4.2.7.2.686 [id number] [facility] 2022-06-28 10:00:00 2022-06-28 10:00:00 Outpatient SHERRI BARRAZA [facility] [id number] [facility] 2022-06-25 15:00:00 2022-06-25 16:16:43 Outpatient Arminda HENSON BONY [facility] [id number] [facility] 2022-06-25 15:00:00 2022-06-25 16:16:43 Office Visit [facility]xto [facility] 1..840.114 350.1.13.10 4.2.7.2.686 [id number] [facility] 2022-05-13 13:00:00 2022-05-13 13:00:00 [id number] 2022-04-27 00:00:00 2022-04-27 00:00:00 Refill Sixto [facility] 1..840.114 350.1.13.10 4.2.7.2.686 [id number] [facility] 2022-04-23 00:00:00 2022-04-23 00:00:00 Refill Ruma HensonCritical access hospital S[facility]OR?[facility] 1.2.840.114 350.1.13.10 4.2.7.2.686 [id number] [id number] [facility] 2022-04-09 14:54:00 2022-04-09 17:24:00 Emergency X JESSICA JAY [facility] ERT [id number] [facility] 2022-04-09 14:54:00 2022-04-09 17:24:00 Emergency Jessica Jay S [facility] 1.2.840.114 350.1.13.10 4.2.7.2.686 [id number] [facility] 2022-03-29 09:00:00 2022-03-29 12:51:11 Clerk Manager Visit Lab, Jorge Wilson Sixto [facility] 1.2.840.114 350.1.13.10 4.2.7.2.686 [id number] [facility] 2022-03-29 08:30:00 2022-03-29 08:59:10 Office Visit Ruma HensonCritical access hospital SANDOR?[facility] OFF[facility] BUILDING 1.2.840.114 350.1.13.10 4.2.7.2.686 [id number] [facility] 2022-03-29 08:30:00 2022-03-29 08:59:10 Outpatient R BONY HENSON [facility] [id number] [facility] 2022 00:00:00 2022 00:00:00 Refguadalupe Sixto [facility] SANDOR?[facility] OFF[facility] BUILD[facility] 1.2.840.114 350.1.13.10 4.2.7.2.686 [id number] [id number] [facility] 2022-03-25 00:00:00 2022-03-25 00:00:00 RefRuma NunnCritical access hospital SANDOR?[facility] 1.840.114 350.1.13.10 4.2.7.2.686 [id number] [facility] 2022-03-15 12:30:00 2022-03-15 12:30:00 Outpatient R FREEMAN, CALLIE [facility] [id number] [facility] 2022-03-15 12:30:00 2022-03-15 12:30:00 Outpatient Arminda FREEMAN CALLIE [facility] [id number] [facility] 2022-03-05 00:00:00 2022-03-05 00:00:00 Patient Secure Msg Henson [facility] SANDOR?[facility] OFF[facility] BUILD[facility] 1.840.114 350.1.13.10 4.2.7.2.686 [id number] [facility] 2022-03-01 00:00:00 2022-03-01 00:00:00 Patient Secure Ruma BainCritical access hospital SANDOR?[facility] BUILD[facility] 1.840.114 350.1.13.10 4.2.7.2.686 [id number] [facility] 2022-02-25 15:30:00 2022-02-25 15:45:00 Clerk Manager Visit Lab, Jorge Wilson Sixto [facility] SANDOR?[facility] OFF[facility] BUILD[facility] 1..840.114 350.1.13.10 4.2.7.2.686 [id number] [facility] 2022-02-25 14:30:00 2022-02-25 15:29:23 Office Visit Bony Henson [facility] 1.2.840.114 350.1.13.10 4.2.7.2.686 [id number] [facility] 2022-02-25 14:30:00 2022-02-25 15:29:23 Outpatient R BONY HENSON [facility] [id number] [facility] 2022-02-06 08:28:00 2022-02-06 11:26:00 Emergency X ESPERANZA HARRIS [facility] ERT [id number] [facility] 2022-02-06 08:28:00 2022-02-06 11:26:00 Emergency Esperanza Harris Rene [facility] 1.2840.114 350.1.13.10 4.2.7.2.686 [id number] [facility] 2021-09-16 08:52:33 2021-09-16 23:59:00 Outpatient R CALLIE FREEMAN [facility] [id number] [facility] 2021-09-16 08:52:33 2021-09-16 23:59:00 Hospital Encounter Jennifer Callie [facility] 1.2.840.114 350.1.13.10 4.2.7.2.686 [id number] [facility] 2021-09-07 13:00:00 2021-09-07 13:30:00 Office Visit Jennifer Callie [facility] 1.2.840.114 350.1.13.10 4.2.7.2.686 [id number] [facility] 2021-09-07 13:00:00 2021-09-07 13:00:00 Outpatient R JENNIFERTUNGCALLIE [facility] [id number] [facility] 2021-09-07 13:00:00 2021-09-07 13:00:00 Outpatient R JENNIFER CALLIE [facility] [id number] [facility] 2021-08-12 10:40:00 2021-08-12 11:00:00 [facility]gent Care [facility] 1.84.114 350.1.13.10 4.2.7.2.686 [id number] [facility] 2021-08-12 10:40:00 2021-08-12 10:40:00 Outpatient MIKE GONGTANY [facility] [id number] [facility] 2021-08-07 14:06:58 2021-08-07 23:59:00 Outpatient Arminda LIPSCOMB [facility] [id number] [facility] 2021-08-07 14:06:58 2021-08-07 23:59:00 Hospital Encounter Sherri Lipscomb [facility] 1..114 350.1.13.10 4.2.7.2.686 [id number] [facility] 2021-08-07 00:00:00 2021-08-07 00:00:00 Orders Only Doctor Unassigned, [place] [facility] 1.0.114 350.1.13.10 4.2.7.2.686 [id number] [facility] 2021-07-13 09:20:00 2021-07-13 09:40:00 [facility] 1..114 350.1.13.10 4.2.7.2.686 [id number] [facility] 2021-07-13 09:20:00 2021-07-13 09:20:00 Outpatient R NEGRO PITT [facility] [id number] [facility] 2021-07-13 09:20:00 2021-07-13 09:20:00 Outpatient R YOANDYNEGRO [facility] [id number] [facility] 2021-06-19 00:00:00 2021-06-19 00:00:00 Case Management TanishaKurtisandrew [facility] 1.2.840.114 350.1.13.10 4.2.7.2.686 [id number] [facility] 2021-06-17 08:30:00 2021-06-17 08:45:00 Clerk Manager Visit Lab, Ang - Db Tanisha KurtisReplaced by [facility] SANDOR?[facility] OFF[facility] BUILD[facility] 1.2.840.114 350.1.13.10 4.2.7.2.686 [id number] [facility] 2021-06-17 08:30:00 2021-06-17 08:30:00 Outpatient R RAY GARAY [facility] [id number] [facility] 2021-06-17 00:00:00 2021-06-17 00:00:00 Patient Secure Msg Doctor Unassigned, [place] [address].2.840.114 350.1.13.10 4.2.7.2.686 [id number] [facility] 2021-06-17 00:00:00 2021-06-17 00:00:00 Patient Secure Msg Doctor Unassigned, [place] [facility] 1.2.840.114 350.1.13.10 4.2.7.2.686 [id number] [facility] 2021-06-16 16:15:00 2021-06-16 16:51:04 Outpatient R RAY GARAY [facility] [id number] [facility] 2021-06-16 16:15:00 2021-06-16 16:51:04 Office Visit Ray Garay [facility] S[facility]OR?[facility] 1.2.840.114 350.1.13.10 4.2.7.2.686 [id number] [facility] 2021-06-16 16:15:00 2021-06-16 16:51:04 Outpatient KURTIS GARCÍAMADELINE [facility] [id number] [facility] 2021-05-27 00:00:00 2021-05-27 00:00:00 Patient Secure Msg Doctor Unassigned, [place] [facility] 1.2.840.114 350.1.13.10 4.2.7.2.686 [id number] [facility] 2021-05-07 13:00:00 2021-05-07 13:46:52 Outpatient R [facility] [id number] [facility] 2021-05-07 13:00:00 2021-05-07 13:46:52 Office Visit Sherri Lipscomb [facility] 1.2.840.114 350.1.13.10 4.2.7.2.686 [id number] [facility] 2021-01-28 00:00:00 2021-01-28 00:00:00 Ray Chery [facility] 1.2.840.114 350.1.13.10 4.2.7.2.686 [id number] [facility] 2021-01-05 00:00:00 2021-01-05 00:00:00 Orders Only Doctor Unassigned, [place] [facility] 1.2.840.114 350.1.13.10 4.2.7.2.686 [id number] [facility] 2020-08-07 00:00:00 2020-08-07 00:00:00 Patient Outreach Jaylen Cash [facility] 1.2840.114 350.1.13.10 4.2.7.2.686 [id number] [facility] 2020-06-12 12:12:19 2020-06-12 23:59:00 Hospital Encounter Ruel [facility] 1.2840.114 350.1.13.10 4.2.7.2.686 [id number] [facility] 2020-06-12 00:00:00 2020-06-12 00:00:00 Outpatient Arminda RUEL [facility] [id number] [facility] 2020-06-12 00:00:00 2020-06-12 00:00:00 Orders Only Doctor Unassigned, [place] [facility] 1.20.114 350.1.13.10 4.2.7.2.686 [id number] [facility] 2020-05-28 00:00:00 2020-05-28 00:00:00 Ray Chery [facility] 1.20.114 350.1.13.10 4.2.7.2.686 [id number] [facility] 2020-05-22 15:40:00 2020-05-22 23:59:00 Hospital Encounter Ruel [facility] 1.20.114 350.1.13.10 4.2.7.2.686 [id number] [facility] 2020-05-22 00:00:00 2020-05-22 00:00:00 Outpatient Arminda LIPSCOMB [facility] [id number] [facility] 2020-05-22 00:00:00 2020-05-22 00:00:00 Orders Only Doctor Unassigned, [place] [facility] 1.2840.114 350.1.13.10 4.2.7.2.686 [id number] [facility] 2020-05-01 14:30:00 2020-05-01 14:30:00 Outpatient R [facility] [id number] [facility] 2020-05-01 12:46:07 2020-05-01 13:22:39 Nurse Visit Nurse, [facility] Michelle Altman [facility] Building 1.2840.114 350.1.13.10 4.2.7.2.686 [id number] [facility] 2020-05-01 00:00:00 2020-05-01 00:00:00 Case Management Ruel Sherri [facility] 1.284.114 350.1.13.10 4.2.7.2.686 [id number] [facility] 2020-04-30 08:01:34 2020-04-30 09:01:57 Office Visit Sherri Lipscomb [facility] 1.284.114 350.1.13.10 4.2.7.2.686 [id number] [facility] 2020-04-30 08:00:00 2020-04-30 08:00:00 Outpatient R RUEL [facility] [id number] [facility] 2020-04-30 00:00:00 2020-04-30 00:00:00 Telephone DuglasSherri rene [facility] Building 1.284.114 350.1.13.10 4.2.7.2.686 [id number] [facility] 2020-02-09 00:00:00 2020-02-09 00:00:00 Telephone Cathy Mitchell [facility] 1.284.114 350.1.13.10 4.2.7.2.686 [id number] [facility] 2020-02-04 18:37:06 2020-02-04 19:55:37 Urgent Care Provider, Jorge [facility] Stephen [facility] 1.114 350.1.13.10 4.2.7.2.686 [id number] [facility] 2020-02-04 18:40:00 2020-02-04 18:40:00 Outpatient R [facility] [id number] [facility] 2020-01-14 10:40:00 2020-01-14 10:40:00 Outpatient R YOLANDA GUZMÁN [facility] [id number] [facility] 2020-01-14 08:09:05 2020-01-14 08:29:05 Telemedici ne Visit Yolanda Guzmán [facility] BUILDING 1.114 350.1.13.10 4.2.7.2.686 [id number] [facility] 2020-01-10 13:45:00 2020-01-10 13:45:00 Outpatient R FARHEEN AVINA [facility] [id number] [facility] 2020-01-10 13:26:31 2020-01-10 13:41:31 Clerk Manager Visit Pob, Adc Lab Main Helen [facility] 1.114 350.1.13.10 4.2.7.2.686 [id number] [facility] 2020-01-10 00:00:00 2020-01-10 00:00:00 Orders Only Doctor Unassigned, [place] [facility] 1.114 350.1.13.10 4.2.7.2.686 [id number] [facility] 2019-09-17 08:15:00 2019-09-17 08:15:00 Outpatient R RAY GARAY [facility] [id number] [facility] 2019-09-17 00:00:00 2019-09-17 00:00:00 Refill Ray Garay [facility] 1.2.840.114 350.1.13.10 4.2.7.2.686 [id number] [facility] 2019-09-12 00:00:00 2019-09-12 00:00:00 Refill Ray Garay [facility] 1.2.840.114 350.1.13.10 4.2.7.2.686 [id number] [facility] 2019-09-11 07:54:16 2019-09-11 10:51:37 Telemedici ne Visit Ray Garay [facility] Building 1.2.840.114 350.1.13.10 4.2.7.2.686 [id number] [facility] 2019-09-11 09:00:00 2019-09-11 09:00:00 Outpatient R TANISHARAY BURT [facility] [id number] [facility] 2019-05-04 13:16:01 2019-05-04 18:41:00 Out[facility] [id number] [facility] 2019-05-04 13:16:01 2019-05-04 18:41:00 [facility] [id number] [facility] 2019-01-26 21:08:15 2019-01-26 23:51:00 Emergency Gustavo Bull Pito [facility] 1.2.840.114 350.1.13.10 4.2.7.2.686 [id number] [facility] 2019-01-18 14:03:10 2019-01-18 15:11:47 Office Visit Ray Garay [facility] 1.114 350.1.13.10 4.2.7.2.686 [id number] [facility] 2019-01-18 00:00:00 2019-01-18 00:00:00 Orders Only Doctor Unassigned, [place] [facility] 1.20.114 350.1.13.10 4.2.7.2.686 [id number] [facility] 2019-01-08 10:48:30 2019-01-08 11:03:30 Clerk Manager Visit [facility] Yolanda Guzmán Rp [facility] 1.114 350.1.13.10 4.2.7.2.686 [id number] [facility] 2019-01-08 09:46:35 2019-01-08 10:06:35 Office Visit Yolanda Guzmán Rp [facility] BUILDING 1.114 350.1.13.10 4.2.7.2.686 [id number] [facility] Results Test Description Test Time Test Comments Results Result Co mments Source [facility] (A1C)2023-06-17 01:21:24* Test Item Value Reference Range Interpretation Comme [facility] HGB A1C (test code = 4548-4) 5.7 % 4.0-5.7 MEG (test code = MEG) Reference RangesNormal: <5.7%Prediabetes: 5.7 - 6.4%Diabetes: > 6.5% Lab Interpretation (test code = 98425-3) Normal [facility] HospitalVITAMIN D, [id number] 00:34:36* Test Item Value Reference Range Interpretation Comme [facility] VIT D 25OH (test code = 78900-2) 22 ng/mL 25-80 L MEG (test code = MEG) Deficiency: <20 ng/mLInsufficiency: 20-24 ng/mLOptimal: 25-80 ng/mL Lab Interpretation (test code = 16088-4) Abnormal [facility] HospitalHIV [facility]/2 AG-AB WITH [id number] 23:07:02* Test Item Value Reference Range Interpretation Comme nts HIV Semi-quantitative (test code = 17042-4) 0.07 Negative MEG (test code = MEG) Non-reactive for HIV-1 antigen and HIV-1/HIV-2 antibodies. ?No laboratory evidence of HIV infection. ?Repeat in 2-4 weeks if acute HIV infection is suspected. [facility] HospitalTHYROID STIMULATING [id number] 22:57:20 * Test Item Value Reference Range Interpretation Comme nts TSH (test code = 5726049594) 3.82 See_Comment [Automated [employer]] The system which generated this result transmitted reference range: 0.45 - 4.70 mIU/L. The reference range was not used to interpret this result as normal/abnormal. Lab Interpretation (test code = 76009-1) [id number] 22:43:36* Test Item Value Reference Range Interpretation Comme nts FREE T4 (test code = 7996217519) 0.97 See_Comment [Automated [employer]] The system which generated this result transmitted reference range: 0.78 - 2.20 ng/dL:. The reference range was not used to interpret this result as normal/abnormal. Lab Interpretation (test code = 35107-2) [facility] [id number] 22:36:35 * Test Item Value Reference Range Interpretation Comme nts TIBC (test code = 5701629878) 352 ug/dL 250-410 Lab Interpretation (test cod e = 97726-8) [facility] [id number] 15:10:37* Test Item Value Reference Range Interpretation Comme nts TROPONIN I (test code = 5318604450) 0.000 ng/mL <=0.034 MEG (test code = MEG) Reference (Normal) Range (defined by the 99th percentile reference limit): <= 0.034 ng/mL Note: Cardiac troponin begins to rise 3-4 hours after the onset of ischemia. Repeat in 4-6 hours if the sample was drawn within 3-4 hours of the onset of the symptom and found normal. Diagnosis of myocardial injury is made with acute changes in cTn concentrations with at least one serial sample above the 99th percentile upper reference limit (URL), taken together with the patient's clinical presentation. Biotin has been reported to cause a negative bias, interpret results relative to patient's use of biotin. Lab Interpretation (test code = 73728-6) Normal [facility]. METABOLIC PANEL ([id number] 15:01:14* Test Item Value Reference Range Interpretation Comme nts NA (test code = 3911695807) 137 mmol/L 135-145 K (test code = 0199751466) 4.5 mmol/L 3.5-5.0 CL (test code = 0627244291) 102 mmol/L 98-108 CO2 TOTAL (test code = 4240746950) 25 mmol/L 23-31 AGAP (test code = 9838939069) 10 2-16 BUN (test code = 5339830756) 10 mg/dL 7-23 GLUCOSE (test code = 3641855465) 100 mg/dL 70-110 CREATININE (test code = 2485764325) 0.62 mg/dL 0.50-1.04 TOTAL BILI (test code = 9146941299) 2.1 mg/dL 0.1-1.1 H CALCIUM (test code = 8847863921) 10.4 mg/dL 8.6-10.6 T PROTEIN (test code = 8121535751) 8.1 g/dL 6.3-8.2 ALBUMIN (test code = 0103838807) 4.8 g/dL 3.5-5.0 ALK PHOS (test code = 3698573900) 59 U/L 34-122 ALTv (test code = 1742-6) 35 U/L 5-35 AST(SGOT) (test code = 1770461668) 31 U/L 13-40 eGFR (test code = 9874006666) 103.2 mL/min/1.73m2 MEG (test code = MEG) Association of Glomerular Filtration Rate (GFR) and Staging of Kidney Disease* + --+ --+ ------+| GFR (mL/min/1.73 m2) ?| With Kidney Damage ?| ?Without Kidney Damage+ --------+ --------+ +| ?>90 ?| ?Stage one ?| ? Normal ?+ ---+ ---+ -------+| ?60-89 ?| ?Stage two ?| ? Decreased GFR ? + --+ --+ ------+| ?30-59 ?| ?Stage three ?| ? Stage three ? + --+ --+ ------+| ?15-29 ?| ?Stage four ? | ? Stage four ?+ ---+ ---+ -------+| ?<15 (or dialysis) ? ?| ?Stage five ? | ? Stage five ?+ ---+ ---+ -------+ *Each stage assumes the associated GFR level has been in effect for at least three months. ?Stages 1 to 5, with or without kidney disease, indicate chronic kidney disease. Notes: Determination of stages one and two (with eGFR >59mL/min/1.73 m2) requires estimation of kidney damage for at least three months as defined by structural or functional abnormalities of the kidney, manifested by either:Pathological abnormalities or Markers of kidney damage (including abnormalities in the composition of the blood or urine or abnormalities in imaging tests). Lab Interpretation (test code = 65428-0) [facility] Test Item Value Reference Range Interpretation Comme nts LIPASE (test code = 3327975921) 88 U/L 0-220 Lab Interpretation (test cod e = 92633-0) Normal [facility] WITH LZPH9367-81-83 14:45:51* Test Item Value Reference Range Interpretation Comme nts WBC (test code = 6690-2) 10.14 See_Comment [Automated [employer]] The system which generated this result transmitted reference range: 4.30 - 11.10 10*3/?L. The reference range was not used to interpret this result as normal/abnormal. RBC (test code = 789-8) 4.92 See_Comment [Automated [employer]] The system which generated this result transmitted reference range: 3.93 - 5.25 10*6/?L. The reference range was not used to interpret this result as normal/abnormal. HGB (test code = 718-7) 14.5 g/dL 11.6-15.0 HCT (test code = 4544-3) 43.5 % 35.7-45.2 MCV (test code = 787-2) 88.4 fL 80.6-95.5 MCH (test code = 785-6) 29.5 pg 25.9-32.8 MCHC (test code = 786-4) 33.3 g/dL 31.6-35.1 RDW-SD (test code = 68318-8) 41.4 fL 39.0-49.9 RDW-CV (test code = 788-0) 12.9 % 12.0-15.5 PLT (test code = 777-3) 443 See_Comment H [Automated messa ge] The system which generated this result transmitted reference range: 166 - 358 10*3/?L. The reference range was not used to interpret this result as normal/abnormal. MPV (test code = 69850-0) 10.2 fL 9.5-12.9 NRBC/100 WBC (test code = 2045695421) 0.0 See_Comment [Automated [employer] ssage] The system which generated this result transmitted reference range: 0.0 - 10.0 /100 WBCs. The reference range was not used to interpret this result as normal/abnormal. NRBC x10^3 (test code = 5710973737) See_Comment [Automated messa ge] The system which generated this result transmitted reference range: 10*3/?L. The reference range was not used to interpret this result as normal/abnormal. GRAN MAT (NEUT) % (test code = 770-8) 65.5 % IMM GRAN % (test code = 6675030334) 1.20 % LYMPH % (test code = 736-9) 24.6 % MONO % (test code = 5905-5) 6.5 % EOS % (test code = 713-8) 1.3 % BASO % (test code = 706-2) 0.9 % GRAN MAT x10^3(ANC) (test code = 6311764136) 6.65 10*3/uL 1.88-7.09 IMM GRAN x10^3 (test code = 2349855206) 0.12 10*3/uL 0.00-0.06 H LYMPH x10^3 (test code = 731-0) 2.49 10*3/uL 1.32-3.29 MONO x10^3 (test code = 742-7) 0.66 10*3/uL 0.33-0.92 EOS x10^3 (test code = 711-2) 0.13 10*3/uL 0.03-0.39 BASO x10^3 (test code = 704-7) 0.09 10*3/uL 0.01-0.07 H Lab Interpretation (test code = 22261-8) [facility] HO[facility]E7963[facility]-31 13:40:00* Test Item Value Reference Range Interpretation Comme nts POCT PREG (test code = 1605) Negative On board controls acceptable with C Line (test code = 3574) Yes POCT PREG LOT # (test code = 3575) [id number] POCT PREG TEST DATE ( test code = 3576) 02/26/24 Lab Interpretation (test cod e = 18598-7) Normal [facility]. METABOLIC PANEL (46934)2022-04-09 22:22:12* Test Item Value Reference Range Interpretation Comme nts NA (test code = 4483315715) 136 mmol/L 135-145 K (test code = 3578627651) 4.1 mmol/L 3.5-5.0 CL (test code = 5102301811) 104 mmol/L 98-108 CO2 TOTAL (test code = 3441399128) 26 mmol/L 23-31 AGAP (test code = 3512173917) 2-16 BUN (test code = 1441392256) 11 mg/dL 7-23 GLUCOSE (test code = 5965136828) 116 mg/dL 70-110 H CREATININE (test code = 1424525036) 0.53 mg/dL 0.50-1.04 TOTAL BILI (test code = 2867668798) 1.2 mg/dL 0.1-1.1 H CALCIUM (test code = 1188585504) 10.1 mg/dL 8.6-10.6 T PROTEIN (test code = 3599130471) 7.0 g/dL 6.3-8.2 ALBUMIN (test code = 1718828351) 4.4 g/dL 3.5-5.0 ALK PHOS (test code = 5200749859) 57 U/L 34-122 ALTv (test code = 1742-6) 28 U/L 5-35 AST(SGOT) (test code = 8499772481) 26 U/L 13-40 eGFR (test code = 5622405357) mL/min/1.73m2 MEG (test code = MEG) Association of Glomerular Filtration Rate (GFR) and Staging of Kidney Disease* + --+ --+ ------+| GFR (mL/min/1.73 m2) ?| With Kidney Damage ?| ?Without Kidney Damage+ --------+ --------+ +| ?>90 ?| ?Stage one ?| ? Normal ?+ ---+ ---+ -------+| ?60-89 ?| ?Stage two ?| ? Decreased GFR ? + --+ --+ ------+| ?30-59 ?| ?Stage three ?| ? Stage three ? + --+ --+ ------+| ?15-29 ?| ?Stage four ? | ? Stage four ?+ ---+ ---+ -------+| ?<15 (or dialysis) ? ?| ?Stage five ? | ? Stage five ?+ ---+ ---+ -------+ *Each stage assumes the associated GFR level has been in effect for at least three months. ?Stages 1 to 5, with or without kidney disease, indicate chronic kidney disease. Notes: Determination of stages one and two (with eGFR >59mL/min/1.73 m2) requires estimation of kidney damage for at least three months as defined by structural or functional abnormalities of the kidney, manifested by either:Pathological abnormalities or Markers of kidney damage (including abnormalities in the composition of the blood or urine or abnormalities in imaging tests). Lab Interpretation (test code = 59264-5) [facility] 22:22:12* Test Item Value Reference Range Interpretation Comme [facility] LIPASE (test code = 7975636277) 135 U/L 0-220 Lab Interpretation (test cod e = 54597-8) Normal [facility] THRMPLAS RDY1447-93-31 22:19:55* Test Item Value Reference Range Interpretation Comme nts APTT Patient (test code = 3173-2) See_Comment [Automated message] The system which generated this result transmitted reference range: 23 - 38 Seconds. The reference range was not used to interpret this result as normal/abnormal. MEG (test code = MEG) The [facility] patient population mean normal value for aPTT is 30 seconds. Lab Interpretation (test code = 99348-4) Normal [facility] Hospital[facility] / [id number] 22:17:52* Test Item Value Reference Range Interpretation Comme nts PROTIME PATIENT (test code = 5964-2) See_Comment [Automated [employer] The system which generated this result transmitted reference range: 12.0 - 14.7 Seconds. The reference range was not used to interpret this result as normal/abnormal. INR (test code = 6301-6) Normal INR <1.1; Warfarin Therapeutic range 2.0 to 3.0 or 2.5 to 3.5, depending upon the indications. Lab Interpretation (test code = 86068-4) [facility] [id number] 22:07:28* Test Item Value Reference Range Interpretation Comme nts WBC (test code = 6690-2) See_Comment [Automated [employer] The system which generated this result transmitted reference range: 4.30 - 11.10 10*3/?L. The reference range was not used to interpret this result as normal/abnormal. RBC (test code = 789-8) See_Comment [Automated [employer] The system which generated this result transmitted reference range: 3.93 - 5.25 10*6/?L. The reference range was not used to interpret this result as normal/abnormal. HGB (test code = 718-7) 12.9 g/dL 11.6-15.0 HCT (test code = 4544-3) 37.3 % 35.7-45.2 MCV (test code = 787-2) 85.6 fL 80.6-95.5 MCH (test code = 785-6) 29.6 pg 25.9-32.8 MCHC (test code = 786-4) 34.6 g/dL 31.6-35.1 RDW-SD (test code = 65829-3) 38.8 fL 39.0-49.9 L RDW-CV (test code = 788-0) 12.4 % 12.0-15.5 PLT (test code = 777-3) See_Comment [Automated messa ge] The system which generated this result transmitted reference range: 166 - 358 10*3/?L. The reference range was not used to interpret this result as normal/abnormal. MPV (test code = 53251-2) 10.0 fL 9.5-12.9 NRBC/100 WBC (test code = 1552284867) See_Comment [Automated [employer]] The system which generated this result transmitted reference range: 0.0 - 10.0 /100 WBCs. The reference range was not used to interpret this result as normal/abnormal. NRBC x10^3 (test code = 3589256520) See_Comment [Automated messa ge] The system which generated this result transmitted reference range: 10*3/?L. The reference range was not used to interpret this result as normal/abnormal. GRAN MAT (NEUT) % (test code = 770-8) 49.4 % IMM GRAN % (test code = 4984808899) 0.90 % LYMPH % (test code = 736-9) 34.5 % MONO % (test code = 5905-5) 8.7 % EOS % (test code = 713-8) 5.5 % BASO % (test code = 706-2) 1.0 % GRAN MAT x10^3(ANC) (test code = 4773048235) 3.33 10*3/uL 1.88-7.09 IMM GRAN x10^3 (test code = 4127953090) 0.06 10*3/uL 0.00-0.06 LYMPH x10^3 (test code = 731-0) 2.33 10*3/uL 1.32-3.29 MONO x10^3 (test code = 742-7) 0.59 10*3/uL 0.33-0.92 EOS x10^3 (test code = 711-2) 0.37 10*3/uL 0.03-0.39 BASO x10^3 (test code = 704-7) 0.07 10*3/uL 0.01-0.07 Lab Interpretation (test code = 13065-1) Abnormal [facility]. METABOLIC PANEL (46453)2022-02-26 03:57:27* Test Item Value Reference Range Interpretation Comme nts NA (test code = 1680419115) 139 mmol/L 135-145 K (test code = 9416352615) 4.2 mmol/L 3.5-5 CL (test code = 1449250442) 100 mmol/L 98-108 CO2 TOTAL (test code = 9002320956) 26 mmol/L 23-31 AGAP (test code = 0482925698) 2-16 BUN (test code = 6894215640) 14 mg/dL 7-23 GLUCOSE (test code = 8401323049) 98 mg/dL 70-110 CREATININE (test code = 2056547191) 1.12 mg/dL 0.5-1.04 H TOTAL BILI (test code = 6788199619) 1.7 mg/dL 0.1-1.1 H CALCIUM (test code = 1257132314) 10.8 mg/dL 8.6-10.6 H T PROTEIN (test code = 9946855582) 7.4 g/dL 6.3-8.2 ALBUMIN (test code = 4934932378) 4.7 g/dL 3.5-5 ALK PHOS (test code = 1906972285) 56 U/L 34-122 ALTv (test code = 1742-6) 21 U/L 5-35 AST(SGOT) (test code = 8937039787) 25 U/L 13-40 eGFR (test code = 0749272058) mL/min/1.73m2 MEG (test code = MEG) Association of Glomerular Filtration Rate (GFR) and Staging of Kidney Disease* + --+ --+ ------+| GFR (mL/min/1.73 m2) ?| With Kidney Damage ?| ?Without Kidney Damage+ --------+ --------+ +| ?>90 ?| ?Stage one ?| ? Normal ?+ ---+ ---+ -------+| ?60-89 ?| ?Stage two ?| ? Decreased GFR ? + --+ --+ ------+| ?30-59 ?| ?Stage three ?| ? Stage three ? + --+ --+ ------+| ?15-29 ?| ?Stage four ? | ? Stage four ?+ ---+ ---+ -------+| ?<15 (or dialysis) ? ?| ?Stage five ? | ? Stage five ?+ ---+ ---+ -------+ *Each stage assumes the associated GFR level has been in effect for at least three months. ?Stages 1 to 5, with or without kidney disease, indicate chronic kidney disease. Notes: Determination of stages one and two (with eGFR >59mL/min/1.73 m2) requires estimation of kidney damage for at least three months as defined by structural or functional abnormalities of the kidney, manifested by either:Pathological abnormalities or Markers of kidney damage (including abnormalities in the composition of the blood or urine or abnormalities in imaging tests). Lab Interpretation (test code = 44793-6) Abnormal [facility] WITH YDVC7913-13-16 03:43:08* Test Item Value Reference Range Interpretation Comme nts WBC (test code = 6690-2) See_Comment [[employer]ated [employer]] The system which generated this result transmitted reference range: 4.30 - 11.10 10*3/?L. The reference range was not used to interpret this result as normal/abnormal. RBC (test code = 789-8) See_Comment [[employer]ated [employer]] The system which generated this result transmitted reference range: 3.93 - 5.25 10*6/?L. The reference range was not used to interpret this result as normal/abnormal. HGB (test code = 718-7) 13.7 g/dL 11.6-15 HCT (test code = 4544-3) 41.0 % 35.7-45.2 MCV (test code = 787-2) 87.6 fL 80.6-95.5 MCH (test code = 785-6) 29.3 pg 25.9-32.8 MCHC (test code = 786-4) 33.4 g/dL 31.6-35.1 RDW-SD (test code = 23049-0) 39.3 fL 39-49.9 RDW-CV (test code = 788-0) 12.2 % 12-15.5 PLT (test code = 777-3) See_Comment [[employer]ated [employer]] The system which generated this result transmitted reference range: 166 - 358 10*3/?L. The reference range was not used to interpret this result as normal/abnormal. MPV (test code = 04614-3) 11.3 fL 9.5-12.9 NRBC/100 WBC (test code = 7419778498) See_Comment [Automated [employer]] The system which generated this result transmitted reference range: 0.0 - 10.0 /100 WBCs. The reference range was not used to interpret this result as normal/abnormal. NRBC x10^3 (test code = 6726161121) See_Comment [Automated me ssage] The system which generated this result transmitted reference range: 10*3/?L. The reference range was not used to interpret this result as normal/abnormal. GRAN MAT (NEUT) % (test code = 770-8) 64.1 % IMM GRAN % (test code = 1768508357) 0.40 % LYMPH % (test code = 736-9) 24.6 % MONO % (test code = 5905-5) 8.2 % EOS % (test code = 713-8) 2.0 % BASO % (test code = 706-2) 0.7 % GRAN MAT x10^3(ANC) (test code = 8321933279) 6.34 10*3/uL 1.88-7.09 IMM GRAN x10^3 (test code = 2355603479) 0.04 10*3/uL 0-0.06 LYMPH x10^3 (test code = 731-0) 2.44 10*3/uL 1.32-3.29 MONO x10^3 (test code = 742-7) 0.81 10*3/uL 0.33-0.92 EOS x10^3 (test code = 711-2) 0.20 10*3/uL 0.03-0.39 BASO x10^3 (test code = 704-7) 0.07 10*3/uL 0.01-0.07 [facility]OL[facility] (03841)2022-02-06 15:25:35* Test Item Value Reference Range Interpretation Comme nts NA (test code = 7966957124) 138 mmol/L 135-145 K (test code = 0023507541) 4.2 mmol/L 3.5-5 CL (test code = 1608499223) 104 mmol/L 98-108 CO2 TOTAL (test code = 5750561666) 27 mmol/L 23-31 AGAP (test code = 5754190155) 2-16 BUN (test code = 6480789259) 10 mg/dL 7-23 GLUCOSE (test code = 0295699183) 97 mg/dL 70-110 CREATININE (test code = 0893105355) 0.62 mg/dL 0.5-1.04 TOTAL BILI (test code = 3469424640) 1.6 mg/dL 0.1-1.1 H CALCIUM (test code = 7399676851) 9.7 mg/dL 8.6-10.6 T PROTEIN (test code = 1395609624) 6.9 g/dL 6.3-8.2 ALBUMIN (test code = 1733179512) 4.5 g/dL 3.5-5 ALK PHOS (test code = 8457794326) 53 U/L 34-122 ALTv (test code = 1742-6) 19 U/L 5-35 AST(SGOT) (test code = 9089139248) 24 U/L 13-40 eGFR (test code = 1520056482) mL/min/1.73m2 MEG (test code = MEG) Association of Glomerular Filtration Rate (GFR) and Staging of Kidney Disease* + --+ --+ ------+| GFR (mL/min/1.73 m2) ?| With Kidney Damage ?| ?Without Kidney Damage+ --------+ --------+ +| ?>90 ?| ?Stage one ?| ? Normal ?+ ---+ ---+ -------+| ?60-89 ?| ?Stage two ?| ? Decreased GFR ? + --+ --+ ------+| ?30-59 ?| ?Stage three ?| ? Stage three ? + --+ --+ ------+| ?15-29 ?| ?Stage four ? | ? Stage four ?+ ---+ ---+ -------+| ?<15 (or dialysis) ? ?| ?Stage five ? | ? Stage five ?+ ---+ ---+ -------+ *Each stage assumes the associated GFR level has been in effect for at least three months. ?Stages 1 to 5, with or without kidney disease, indicate chronic kidney disease. Notes: Determination of stages one and two (with eGFR >59mL/min/1.73 m2) requires estimation of kidney damage for at least three months as defined by structural or functional abnormalities of the kidney, manifested by either:Pathological abnormalities or Markers of kidney damage (including abnormalities in the composition of the blood or urine or abnormalities in imaging tests). Lab Interpretation (test code = 18297-2) Abnormal [facility] WITH [id number] 15:03:15* Test Item Value Reference Range Interpretation Comme nts WBC (test code = 6690-2) See_Comment H [Automated message] The system which generated this result transmitted reference range: 4.30 - 11.10 10*3/?L. The reference range was not used to interpret this result as normal/abnormal. RBC (test code = 789-8) See_Comment [Automated message] The system which generated this result transmitted reference range: 3.93 - 5.25 10*6/?L. The reference range was not used to interpret this result as normal/abnormal. HGB (test code = 718-7) 14.1 g/dL 11.6-15 HCT (test code = 4544-3) 41.1 % 35.7-45.2 MCV (test code = 787-2) 86.5 fL 80.6-95.5 MCH (test code = 785-6) 29.7 pg 25.9-32.8 MCHC (test code = 786-4) 34.3 g/dL 31.6-35.1 RDW-SD (test code = 59029-6) 39.1 fL 39-49.9 RDW-CV (test code = 788-0) 12.3 % 12-15.5 PLT (test code = 777-3) See_Comment [Automated message] The system which generated this result transmitted reference range: 166 - 358 10*3/?L. The reference range was not used to interpret this result as normal/abnormal. MPV (test code = 62365-3) 10.0 fL 9.5-12.9 NRBC/100 WBC (test code = 8399783632) See_Comment [Automated message] The system which generated this result transmitted reference range: 0.0 - 10.0 /100 WBCs. The reference range was not used to interpret this result as normal/abnormal. NRBC x10^3 (test code = 9549387239) See_Comment [Automated message] The system which generated this result transmitted reference range: 10*3/?L. The reference range was not used to interpret this result as normal/abnormal. GRAN MAT (NEUT) % (test code = 770-8) 80.4 % IMM GRAN % (test code = 7564050876) 0.50 % LYMPH % (test code = 736-9) 11.3 % MONO % (test code = 5905-5) 6.4 % EOS % (test code = 713-8) 0.9 % BASO % (test code = 706-2) 0.5 % GRAN MAT x10^3(ANC) (test code = 7621460412) 11.99 10*3/uL 1.88-7.09 H IMM GRAN x10^3 (test code = 3467641689) 0.07 10*3/uL 0-0.06 H LYMPH x10^3 (test code = 731-0) 1.69 10*3/uL 1.32-3.29 MONO x10^3 (test code = 742-7) 0.95 10*3/uL 0.33-0.92 H EOS x10^3 (test code = 711-2) 0.13 10*3/uL 0.03-0.39 BASO x10^3 (test code = 704-7) 0.07 10*3/uL 0.01-0.07 Lab Interpretation (test code = 63831-6) Abnormal [facility] Notes Date/Time Note Provider Source 2023-06-16 14:45:00 J30lI4JSMlIylz85BELX Q5/keN4qrxY/DCKMq7vh4f 9bzUpaJHZci6lUBbq2+u766427-80-16Y96:45:00F ormatting of this note is different from the original.Images from the original note were not included.Venipuncture collection performed by clean technique on the right anticubitus. Total of 1 attempts were made. Slight pressure and a bandage/dressing were applied to the site(s). The patient experienced no complications. The following specimens were processed according to instructions and sent to [facility] laboratories per lab order on 06/16/2023:LT BLUESST 2REDLAV 2PPTDK GREEN (LiHep)DK GREEN (SodH)GRAYDK BLUE (K2)DK BLUE (S)ACDBlood CultureNIPT/NTD 28691-8Dfdwn ZnedDJ5098-00-90A64:32:21Nurse NoteTXT1.2.840.526106.1.13.104.2.7.2.67748 9|[id number] for patient snxy04523-3Urobr NoteLNNARRATIVEFormatted C-CDA narrative text[address] WxgkK[id number] YZXRSIHUVPMFJPIR2606-04-35S60:32:211.2.840 .378480.1.72.3.15|1.2.840.834622.1.13.104. 2.7.2.727879_[id number] [facility] 2023-06-15 14:53:32 iRx7fSr9u2KCXVl3L885 BXV3xczaVQvEth/7k6NLTT r9iGcn9w9AuH/AXo4D1dok8528-85-90U37:53:32F ormatting of this note is different from the original.Images from the original note were not included.levocetirizine 5 mg tabletSig: Take 1 tablet by mouth every evening.Disp: 90 tablet Refills: 1Start: 06/15/2023lass: eRXFor: Chronic rhinitisLast ordered: 5 months ago (12/24/2022) by Lennox Hylton Pxltnw2806/15/2023 02:44 PMProtocol Details Valid encounter within last 12 monthsTo be filled at: [id number] [address]Recent VisitsDate Type Provider Dept12/24/22 Office Visit Bony Henson FNP [facility]10/26/22 Office Visit Bony Henson FNP [facility]10/01/22 Office Visit Bony Henson GRILL ASSOCIATE [facility]06/25/22 Office Visit Bony Henson GRILL ASSOCIATE [facility]03/29/22 Office Visit Bony Henson GRILL ASSOCIATE [facility]02/25/22 Office Visit Bony Henson GRILL ASSOCIATE [facility] Fam MedShowing recent visits within past 540 days with a meds authorizing provider and meeting all other requirementsFuture AppointmentsDate Type Provider Dept06/16/23 Appointment Bony Henson FNP [facility] Fam MedShowing future appointments within next 150 days with a meds authorizing provider and meeting all other requirements 45365-7Mulwekvbf encounter CkoaIV2129-54-69S39:55:20Telephone encounter NoteTXT1.2.840.309805.1.13.104.2.7.2.91427 9|[id number] for patient gbwv62474-5NtxgVMBZWCZPZDSTefhwldbi C-CDA narrative textUT[address] HzpeJxofyysaxLkndqbbhuZVCK2355286015BCWRRB TBBXTNMEOGDFINTI0416-51-28Q13:55:201.2.840 .999121.1.72.3.15|1.2.840.487659.1.13.104. 2.7.2.727879_[id number] [facility]"
[2023-08-18] MEDS ORDERED: ONDANSETRON 4 MG/2 ML VIAL ONE ×2 (18:25→21:34)
[2023-08-18] MEDS ORDERED: FAMOTIDINE 20 MG/2 ML VIAL IV ONE (18:26)
[2023-08-18] MEDS ORDERED: MORPHINE 4 MG/ML SYR ONE (18:26)
[2023-08-18] MEDS ORDERED: NA CHLORIDE 0.9% 1,000 ML ONE (18:26)
[2023-08-18 18:35] LABS: Absolute Basophils 0.1 K/uL (0-0.5); Absolute Eosinophils 0.3 K/uL (0-0.5); Absolute Lymphocytes (CBC) 2.2 K/uL (0.7-4.9); Absolute Monocytes 0.7 K/uL (0.1-1.3); Absolute Neutrophil 10.2 K/uL (1.8-8.0); Basophils % 0.9 % (0-1.3); Eosinophils % 2.3 % (0-4.4); Hematocrit 38.6 % (36.0-45.0); Hemoglobin 13.2 g/dL (12.0-15.0); Lymphocytes % 16.4 % (15.3-44.8); MCH 29.7 pg (27.0-35.0); MCHC 34.1 g/dL (32.0-36.0); MPV 8.1 fL (7.6-11.3); Monocytes % 5.5 % (3.3-12.3); Neutrophils % 74.9 % (41.7-73.7); Nucleated Red Blood Cells % 0.1 % (0-0); Platelets 355 thou/uL (152-406); RBC Red Blood Cell Count 4.44 M/uL (3.86-4.86)
[2023-08-18 18:40] LABS: Urine Bacteria <20 /HPF (<20); Urine Bilirubin NEGATIVE (Negative); Urine Blood 3+ (OVER) (Negative); Urine Clarity Extremely Turbid (Clear); Urine Color Yellow (Yellow); Urine Culture Reflex Order NOT NEEDED; Urine Glucose NEGATIVE (Negative); Urine Ketones 1+ (Negative); Urine Microscopic Reflex YN ORDER UMIC; Urine Mucus 1+ /HPF (None Seen); Urine Nitrite NEGATIVE (Negative); Urine Protein TRACE (Negative); Urine RBC >50 /HPF (None Seen); Urine Urobilinogen Normal (Normal); Urine WBC <5 /HPF (<5)
[2023-08-18 19:37] LABS: Albumin 3.6 g/dL (3.4-5.0); Albumin/Globulin Ratio 1.1 (1.1-1.8); Anion Gap 7.9 mEq/L (5.0-15.0); Bilirubin Total 1.1 mg/dL (0.2-1.0); Globulin 3.4 g/dL (2.3-3.5); Potassium 3.9 mEq/L (3.5-5.1)
--- NOTE | 2023-08-18 21:06 | RAD REPORT ---
EXAM DESCRIPTION: CT - Abdomen Pelvis W Contrast - 08/18/2023 8:00 pm CLINICAL HISTORY: ABD PAIN COMPARISON: No comparisons TECHNIQUE: Thin cut axial CT imaging of the abdomen and pelvis was performed following intravenous a dministration of 100 mL Isovue 300. Multiplanar reformats were generated and reviewed. All CT scans are performed using dose optimization technique as appropriate and may include automated exposure control or mA/KV adjustment according to patient size. FINDINGS: No suspicious findings in the lung bases. The liver, spleen, adrenal glands, and pancreas show no suspicious findings. Gallbladder was surgical ly removed Symmetric renal function is seen with no hydronephrosis or suspicious renal mass. Multiple bilateral cortical subcentimeter hypodense lesions, not well characterized, but suggestive of cysts. No dilated bowel loops. Mild gaseous distention of the colon. Fluid opacification of the ascending an d sigmoid colon, with mild wall prominence along the ascending colon. Mild colonic diverticulosis. No free air, free fluid or inflammatory stranding. No hernia, mass or bulky lymphadenopathy. The urinar y bladder is without significant finding. No suspicious bony findings. IMPRESSION: Fluid opacification of the proximal and distal colon with mild wall prominence of the as cending colon, findings suggestive of infectious or inflammatory colitis.
[2023-08-18] MEDS ORDERED: CEFTRIAXONE 1000 MG/VIAL ONE (21:34)
[2023-08-18] MEDS ORDERED: metroNIDAZOLE 500 MG TABLET ONE (21:34)
[2023-08-18] MEDS ORDERED: HYDROCODONE/APAP 5/325 MG TAB ONE (21:34)
[2023-08-18] MEDS ORDERED: WATER FOR INJ,STERILE 10 ML ONE (21:34)
--- NOTE | 2023-08-18 22:22 | EDPHYS ---
Physician Documentation [facility] Name: Josiane Grant Age: 48 yrs Sex: Female : 1975 Arrival Date: 08/18/2023 Time: 16:23 Bed 7 Private MD: Abiola Henson ED Physician Allan Armstrong HPI: 08/17 17:03 This 48 yrs old Female presents to ER via Ambulatory with complaints of sb4 Abdominal Pain. 17:31 Patient reports nausea, constipation, abdominal bloating x 24 hours. She reports a sb4 history of IBS-C in which she takes daily Linzess. She states that she did have a bowel movement earlier today, which did improve her bloating but she is still feeling very poorly. She denies any blood in her stool, fever, or any other associated signs and symptoms. Sees Dr. Chow for her IBS-C. Historical: - Allergies: 16:49 Ciprofloxacin; ko1 - PMHx: 16:49 IBSC; ko1 - PSHx: 16:49 Cholecystectomy; ko1 - Immunization history:: Adult Immunizations up to date. - Social history:: Smoking status: Patient denies any tobacco usage or history of. ROS: 17:31 Constitutional: Negative for fever, chills, and weight loss, sb4 17:31 Abdomen/GI: Positive for abdominal pain, nausea, constipation, 17:31 All other systems are negative, Exam: 17:31 Constitutional: This is a well developed, well nourished patient who is awake, alert, sb4 and in no acute distress. Head/Face: Normocephalic, atraumatic. Eyes: Extra-ocular motions intact. Periorbital areas with no swelling, redness, or edema. ENT: Mucous membranes moist. Cardiovascular: Regular rate and rhythm with a normal S1 and S2. Respiratory: Lungs have equal breath sounds bilaterally, clear to auscultation and percussion. No rales, rhonchi or wheezes noted. No increased work of breathing, no retractions or nasal flaring. Skin: Warm, dry with normal turgor. Normal color with no rashes, no lesions, and no evidence of cellulitis. MS/ Extremity: Pulses equal, no cyanosis. Neurovascular intact. Full, normal range of motion. Neuro: Awake and alert, GCS 15, oriented to person, place, time, and situation. Motor strength 5/5 in all extremities. Sensory grossly intact. 17:31 Abdomen/GI: Inspection: distension, that is mild, in the right upper quadrant, left upper quadrant, right lower quadrant and left lower quadrant, Bowel sounds: normal, Palpation: soft, mild abdominal tenderness, in all quadrants, Vital Signs: 16:46 BP 122 / 78; Pulse 91; Resp 15; Temp 98.3; Pulse Ox 99% ; ko1 18:40 BP 118 / 64; Pulse 84; Resp 18; Pulse Ox 100% ; cp4 19:31 BP 120 / 71; Pulse 80; Resp 17 S; Pulse Ox 100% on R/A; ha1 20:32 BP 117 / 61; Pulse 78; Resp 17 S; Pulse Ox 100% on R/A; ha1 21:25 BP 115 / 64; Pulse 81; Resp 18; Temp 98; Pulse Ox 100% on R/A; rv [place] Coma Score: 21:25 Eye Response: spontaneous(4). Motor Response: obeys commands(6). Verbal Response: rv oriented(5). Total: 15. MDM: 16:57 Patient medically screened. sb4 21:29 Data reviewed: vital signs, nurses notes, lab test result(s), radiologic studies, and sb4 as a result, I will discharge patient. Consideration of Admission/Observation Escalation of care including admission/observation considered. Counseling: I had a detailed discussion with the patient and/or guardian regarding the historical points, exam findings, and any diagnostic results supporting the discharge/admit diagnosis, lab results, radiology results, the need for outpatient follow up, a industrial order clerk, to return to the emergency department if symptoms worsen or persist or if there are any questions or concerns that arise at home. 21:33 ED course: source of infection identified at 2108, meeting sepsis criteria with HR 91 sb4 and WBC 13. will obtain blood cultures, lactate, pt-inr, ptt. 08/17 17:03 Order name: CBC with Diff; Complete Time: 18:40 sb4 08/17 17:03 Order name: CMP; Complete Time: 19:38 sb4 08/17 17:03 Order name: Lipase; Complete Time: 19:38 sb4 08/17 17:03 Order name: Urinalysis w/ reflexes; Complete Time: 18:40 sb4 08/17 21:29 Order name: Blood Culture Adult (2) 4 08/17 21:29 Order name: Lactate w/ 2H reflex if indic.; Complete Time: 22:25 sb4 08/17 21:29 Order name: PT-INR 4 08/17 21:29 Order name: Ptt, Activated 4 08/17 17:03 Order name: CT Abd/Pelvis - IV Contrast Only; Complete Time: 21:08 4 08/17 17:03 Order name: IV Saline Lock; Complete Time: 18:18 sb4 08/17 17:03 Order name: Labs collected and sent; Complete Time: 18:19 4 08/17 18:40 Order name: Misc. Order: RECOLLECT ALL LABS; Complete Time: 19:17 [facility] 08/17 21:09 Order name: PO challenge; Complete Time: 21:25 sb4 Administered Medications: 18:33 Drug: NS 0.9% IV 1000 ml IV at 1 bolus Per protocol; 1000 mL bolus Route: IV; Rate: 1 cp4 bolus; Site: right antecubital; 18:33 Drug: Famotidine IVP 20 mg IVP once; dilute with 10 mL 0.9% NaCl; give over 2 minutes cp4 Route: IVP; Site: right antecubital; 18:34 Drug: Ondansetron IVP 4 mg IVP once; over 2 minutes Route: IVP; Site: right antecubital;cp4 18:34 Drug: morphine IVP or IV 4 mg IVP once over 4 mins Route: IVP; Infused Over: 4 mins; cp4 Site: right antecubital; 21:56 Drug: Ondansetron IVP 4 mg IVP once; over 2 minutes Route: IVP; Site: right antecubital;rv 21:57 Follow up: Response: Medication administered at discharge. rv 21:56 Drug: Rocephin IV 1 grams IV at calculated rate once; Given slow IV push per pharmacy rv instructions Route: IV; Rate: calculated rate; Site: right antecubital; 22:33 Follow up: Response: No adverse reaction; IV Status: Completed infusion rv 21:56 Drug: HYDROcodone-acetaminophen PO 5 mg-325 mg 2 tabs PO once Route: PO; rv 21:57 Follow up: Response: Medication administered at discharge. rv 21:56 Drug: metroNIDAZOLE PO 500 mg PO once Route: PO; rv 21:57 Follow up: Response: Medication administered at discharge. rv Disposition Summary: 08/18/23 22:21 Discharge Ordered Notes: Location: Home sb4 Problem: new sb4 Symptoms: have improved sb4 Condition: Stable sb4 Diagnosis - Left sided colitis sb4 Followup: sb4 - With: Santiago Sepulveda MD - When: 2 - 3 days - Reason: Recheck today's complaints, Re-evaluation by your physician Discharge Instructions: - Discharge Summary Sheet sb4 - Colitis sb4 Forms: - Thank You Letter sb4 - Antibiotic Education sb4 - Prescription Opioid Use sb4 - Patient Portal Instructions sb4 - Leadership Thank You Letter sb4 Prescriptions: - cefdinir 300 mg Oral capsule - take 1 capsule ORAL route every 12 hours for 7 days; 14 capsule; Refills: 0, sb4 Product Selection Permitted - Flagyl 500 mg Oral Tablet - take 1 tablet ORAL route every 12 hours for 7 days; 14 tablet; Refills: 0, sb4 Product Selection Permitted - Zofran 4 mg Oral Tablet - take 1 tablet ORAL route every 12 hours As needed; 20 tablet; Refills: 0, sb4 Product Selection Permitted - Tramadol 50 mg Oral Tablet - take 1 tablet ORAL route every 8 hours as needed; 12 tablet; Refills: 0, sb4 Product Selection Permitted Signatures: Dispatcher [employer] Darrel Macario, RN RN Vickie Walker RN RN Elo Albarran PA-C PASukhwinder sb4 Dannielle Red rv1 Merary Gao 4
--- NOTE | 2023-08-18 22:22 | ER ---
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 Coronavirus screen: At this time, the client does not indicate any symptoms associated with coronavirus-19. Ebola Screen: No symptoms or risks identified at this time. Initial Sepsis Screen: Does the patient meet any 2 criteria? No. Patient's initial sepsis screen is negative. Does the patient have a suspected source of infection? No. Patient's initial sepsis screen is negative. Risk Assessment: Do you want to hurt yourself or someone else? Patient reports no desire to harm self or others. Onset of symptoms was August 18, 2023. 16:46 Method Of Arrival: Ambulatory ko1 16:46 Acuity: RENATA 3 ko1 Triage Assessment: 16:49 General: Appears uncomfortable, Behavior is calm, cooperative, appropriate for age. ko1 Pain: Complains of pain in abdomen. GI: Reports bloating, constipation, nausea. Historical: - Allergies: 16:49 Ciprofloxacin; ko1 - PMHx: 16:49 IBSC; ko1 - PSHx: 16:49 Cholecystectomy; ko1 - Immunization history:: Adult Immunizations up to date. - Social history:: Smoking status: Patient denies any tobacco usage or history of. Screenin:19 [facility] ED Fall Risk Assessment (Adult) History of falling in the last 3 months, cp4 including since admission No falls in past 3 months (0 pts) Confusion or Disorientation No (0 pts) Intoxicated or Sedated No (0 pts) Impaired Gait No (0 pts) Mobility Assist Device Used No (0 pt) Altered Elimination No (0 pt) Score/Fall Risk Level 0 - 2 = Low Risk Oriented to surroundings, Maintained a safe environment, Assessed \T\ reinforced patient's understanding of fall precautions, Hourly rounding (assess needs \T\ fall precautionary measures) done. Abuse screen: Denies threats or abuse. Abuse screen: Denies threats or abuse. Nutritional screening: No deficits noted. Tuberculosis screening: No symptoms or risk factors identified. Assessment: 18:19 General: Appears uncomfortable, Behavior is calm, cooperative, appropriate for age. cp4 Pain: Complains of pain in abdomen Pain began 1 day ago. GI: Bowel sounds present X 4 quads. Abdomen is tender to palpation X 4 quads. 19:30 General: Appears uncomfortable, Behavior is calm, cooperative. Pain: Complains of pain ha1 in abdomen Pain currently is 4 out of 10 on a pain scale. Quality of pain is described as crampy, Pain began 1 day ago. Neuro: Level of Consciousness is awake, alert, obeys commands, Oriented to person, place, time, situation. Cardiovascular: Capillary refill < 3 seconds Patient's skin is warm and dry. Respiratory: Airway is patent Respiratory effort is even, unlabored, Respiratory pattern is regular, symmetrical. GI: Bowel sounds present X 4 quads. Reports lower abdominal pain, upper abdominal pain. Derm: Skin is pink, warm \T\ dry. 20:32 Reassessment: Patient and/or family updated on plan of care and expected duration. Pain ha1 level reassessed. Patient is alert, oriented x 3, equal unlabored respirations, skin warm/dry/pink. 21:26 Reassessment: po challenge succesful. rv Vital Signs: 16:46 BP 122 / 78; Pulse 91; Resp 15; Temp 98.3; Pulse Ox 99% ; ko1 18:40 BP 118 / 64; Pulse 84; Resp 18; Pulse Ox 100% ; cp4 19:31 BP 120 / 71; Pulse 80; Resp 17 S; Pulse Ox 100% on R/A; ha1 20:32 BP 117 / 61; Pulse 78; Resp 17 S; Pulse Ox 100% on R/A; ha1 21:25 BP 115 / 64; Pulse 81; Resp 18; Temp 98; Pulse Ox 100% on R/A; rv Hair Coma Score: 21:25 Eye Response: spontaneous(4). Motor Response: obeys commands(6). Verbal Response: rv oriented(5). Total: 15. ED Course: 16:26 Patient arrived in ED. mr 16:26 Abiola Henson is Private Physician. mr 16:27 [facility]edeno [facility] sb4 16:27 Allan Armstrong MD is Attending Physician. sb4 16:49 Triage completed. ko1 16:49 Arm band placed on left wrist. Patient placed in waiting room, Patient notified of wait ko1 time. 17:25 Vickie Martins, RN is Primary Nurse. ko1 17:31 Radiology exam delayed due to lab results not completed at this time. (BUN/Creatinine). nj 17:32 Radiology exam delayed due to IV insertion attempt and/or patient not having nj appropriate IV at this time. 17:44 Merary Gao is Primary Nurse. cp4 18:19 Bed in low position. Call light in reach. Side rails up X 1. cp4 18:19 CBC with Diff Sent. cp4 18:19 CMP Sent. cp4 18:19 Lipase Sent. cp4 18:19 Urinalysis w/ reflexes Sent. cp4 18:19 No provider procedures requiring assistance completed. Inserted saline lock: 20 gauge cp4 in right antecubital area, using aseptic technique. Blood collected. 18:19 Initial lab(s) drawn, by me, sent to lab. Urine collected: clean catch specimen, clear. cp4 19:17 Darrel Mendoza, RN is Primary Nurse. rv 20:01 CT Abd/Pelvis - IV Contrast Only In Process Unspecified. EDMS 21:26 IV discontinued, intact, bleeding controlled, No redness/swelling at site. Pressure rv dressing applied. 22:21 Santiago Sepulveda MD is Referral Physician. sb4 Administered Medications: 18:33 Drug: NS 0.9% IV 1000 ml IV at 1 bolus Per protocol; 1000 mL bolus Route: IV; Rate: 1 cp4 bolus; Site: right antecubital; 18:33 Drug: Famotidine IVP 20 mg IVP once; dilute with 10 mL 0.9% NaCl; give over 2 minutes cp4 Route: IVP; Site: right antecubital; 18:34 Drug: Ondansetron IVP 4 mg IVP once; over 2 minutes Route: IVP; Site: right antecubital;cp4 18:34 Drug: morphine IVP or IV 4 mg IVP once over 4 mins Route: IVP; Infused Over: 4 mins; cp4 Site: right antecubital; 21:56 Drug: Ondansetron IVP 4 mg IVP once; over 2 minutes Route: IVP; Site: right antecubital;rv 21:57 Follow up: Response: Medication administered at discharge. rv 21:56 Drug: Rocephin IV 1 grams IV at calculated rate once; Given slow IV push per pharmacy rv instructions Route: IV; Rate: calculated rate; Site: right antecubital; 22:33 Follow up: Response: No adverse reaction; IV Status: Completed infusion rv 21:56 Drug: HYDROcodone-acetaminophen PO 5 mg-325 mg 2 tabs PO once Route: PO; rv 21:57 Follow up: Response: Medication administered at discharge. rv 21:56 Drug: metroNIDAZOLE PO 500 mg PO once Route: PO; rv 21:57 Follow up: Response: Medication administered at discharge. rv Medication: 18:19 VIS not applicable for this client. cp4 Outcome: 21:26 Discharged to home ambulatory, rv 21:26 Condition: good 21:26 Discharge instructions given to patient, Instructed on discharge instructions, follow up and referral plans. medication usage, Demonstrated understanding of instructions, follow-up care, medications, Prescriptions given X 4, 22:21 Discharge ordered by . sb4 22:34 Patient left the ED. rv Signatures: Dispatcher [employer] EDMS MickAbby, Reg Reg mr Ryan Perico Darrel Joel, RN RN rv Sarah Rudolph, RN RN Vickie Hensley, ADRIEN RN Elo Albarran, PASukhwinder PASukhwinder sb4 Merary Gao cp4 Corrections: (The following items were deleted from the chart) 22:33 21:26 Discharge instructions given to patient, Instructed on discharge instructions, rv follow up and referral plans. medication usage, Demonstrated understanding of instructions, follow-up care, medications, Prescriptions given X 2, rv
[2023-08-18 23:12] VITALS: BP 115/64; TEMP 98; O2SAT 100
[2023-08-18 23:13] LABS: PT Prothrombin Time 11.4 SECONDS (9.5-12.5); PTT, Activated Partial Thromb 37.2 SECONDS (24.3-36.9); Protime INR 1.04
== END 2023-08-18 22:34 | disposition home or self-care (01) ==
LOC: ER 16:23
DX: K51.50 Left sided colitis without complications (principal); Z88.1 Allergy status to other antibiotic agents
CPT/HCPCS: 96365; 87040 ×2; 85025; 81001; 36415; 85610; 83605; 85730; 83690; 80053; 74177; 96375; 99284; Q9967; J2405 ×2; J7030; J0696